=== PATIENT | male | born 1975 | race African-American/Black ===

== ENCOUNTER 2016-03-10 10:59 | Inpatient (IN) ==
[2016-03-10] MEDS ORDERED: ONDANSETRON 4 MG/2 ML VIAL IV STA (11:25)
[2016-03-10] MEDS ORDERED: PANTOPRAZOLE 40 MG VIAL IV STA (11:25)
[2016-03-10 11:49] LABS: Basophils % 0.1 % (0.0-0.8); Hematocrit 40.1 VOL% (42.0-52.0); Hemoglobin 13.9 GM/DL (14.0-18.0); Immature Granulocytes % 0.4 %; Immature Granulocytes Absolute 0.06 #; Lymphocytes # 1.1 10*3/uL (1.4-4.0); Lymphocytes % 6.8 % (21.2-54.2); Mean Corpuscular HGB Conc 34.7 GM/DL (32-36); Mean Corpuscular Hemoglobin 27 PG (27-34); Monocytes % 6.4 % (1.7-12.7); Neutrophils # 13.9 10*3/uL (1.4-7.4); Neutrophils % 86.3 % (38.7-73.9); Platelet Count 538 10*3/uL (130-400); Red Blood Count 5.21 10*6/uL (3.8-5.5); Red Cell Distribution Width 14.5 % (9.3-17.3); White Blood Count 16.1 10*3/uL (4.5-13.71)
[2016-03-10 12:01] LABS: INR 1.1; PT Patient Result 11.4 SECS
[2016-03-10 12:23] LABS: Calcium 9.1 MG/DL (8.5-10.1); Magnesium 1.8 MG/DL (1.8-2.4); Potassium 4.2 MMOL/L (3.5-5.1)
[2016-03-10 12:24] LABS: Troponin I Only 0.204 NG/ML (0.00-0.045)
--- NOTE | 2016-03-10 12:39 | XRay Report ---
XR abdomen 2V Indication: Hematemesis. Chest pain. Abdomen 2 views: No small bowel dilatation shown with a couple of scattered air-fluid levels present, thought to be within normal limits. Normal amount of stool and gas is present in the colon. No free air. Cholecystectomy clips noted. Impression: Unremarkable bowel gas pattern. PROCEDURE INTERPRETED AT [facility] DEPARTMENT OF RADIOLOGY Final Report Signed by: Alex Lorenzana M.D.
--- NOTE | 2016-03-10 12:45 | XRay Report ---
Exam: XR chest 2V Indication: Hematemesis, chest pain Comparison study: 09/27/15 Findings: The heart, mediastinum and bony structures are stable from prior. There is no focal consolidation, pneumothorax or pleural effusion identified. Impression: No acute cardiopulmonary process. PROCEDURE INTERPRETED AT [facility] DEPARTMENT OF RADIOLOGY Final Report Signed by: Ambrosio Noble
--- NOTE | 2016-03-10 12:47 | Emergency Department Note ---
IKrzysztof Kasabria, am scribing for, and in the presence of, Ko Ramires M.D. 11:30. IKeyla Howard T, M.D., personally performed the services described in this documentation, ascribed by Abbe Blankenship in my presence, and it is both accurate and complete 137 . Arrival - Arrival Chief Complaint: Nausea/Vomiting/Diarrhea Stated Complaint: N/V-coffee ground emesis ED Nursing Triage Note: Brought in by EMS c/o N/V coffee ground emesis and midsternal chest pain-onset yesterday. Patient initially called STEMI by EMS for elevation in V1 and V2, Dr. Perdomo and Sonia Jones, CASH ROOM CLERK in ER upon patient's arrival--12 lead obtained and determined to not be a STEMI. +SOB, +diaphoresis. Mode of Arrival: Stretcher Limitations: No Limitations Source: Patient Time Seen by Provider: 03/10/16 11:18 - History of Present Illness HPI Narrative: This is a 41 y/o black male presenting to the ED with c/o hematemesis with the distinct coffee ground color, midsternal chest pain, and diarrhea that onset yesterday. He states he had to leave work earlier due to nausea. He had several bouts of diarrhea accompanying the vomiting. Pt states this has happened to him before 3-4 months ago. He takes two medications for his HTN. He is also a diabetic, gastroparesis, and GERD. Consistency: constant Severity: moderate Allergies/Adverse Reactions: Allergies Allergy/AdvReac Type Severity Reaction Status Date / Time iodine Allergy Swelling Verified 08/08/15 11:33 of Lip/Tongue/Throat shrimp Allergy ITCHING Verified 08/07/15 14:47 Home Medications: Home Medications Medication Instructions Recorded Confirmed Type metFORMIN [Glucophage] 500 mg PO BID W/MEALS 05/21/15 10/14/15 History Nebivolol HCl [Bystolic] 20 mg PO DAILY 09/27/15 10/14/15 History Promethazine Supp [Phenergan Supp] 25 mg RECTAL Q6H PRN #12 supp 10/14/15 Rx hydroCHLOROthiazide 25 mg PO DAILY 10/14/15 10/14/15 History [Hydrochlorothiazide] Review of System - Review of System 12 point system: reviewed and no additional remarkable complaints except as stated - Review of System Constitutional: Absent: chills, fever, weakness Eyes: Absent: vision change Head/Ears/Nose/Throat: Absent: nasal drainage Respiratory: Absent: cough, wheezing Cardiovascular: Present: chest pain (midsternal ). Absent: dyspnea on exertion , syncope Gastrointestinal: Present: nausea, vomiting, diarrhea, hematemesis (coffee ground ). Absent: abdominal pain Genitourinary male: Absent: dysuria Musculoskeletal: Absent: arm pain, back pain, leg pain, neck pain Skin: Absent: rash Neurological: Absent: headache, weakness, numbness, confusion, abnormal gait, vertigo Psychiatric: Absent: anxiety Endocrine: Absent: fatigue Hematological/Lymphatic: Absent: easy bleeding Allergic/Immunologic: Absent: facial swelling Medical,Surgical,& Family Hx - Medical History Cardio: History of: Hypertension HEENT: History of: Eye Problem (bleeding) Endocrine: History of: Diabetes Mellitus (NIDDM) Respiratory: History of: Asthma Gastrointestinal: History of: GERD, GI Problems (gastroparesis) - Surgical History Thoracic Surgeries: Patient denies;: Organ Transplant Abdominal Surgeries: Surgical HX of: Cholecystectomy, EGD Orthopedic Surgeries: Surgical HX of;: Orthopedic Surgery (FOR L LEG FX; right wrist) - Family History Family History: Reports;: Family Diabetes, Family Hypertension - Social History Smoking Status: Current every day smoker Frequency of Alcohol Use: None Type of Drug Use: None Exam Vital Signs: Vital Signs Temperature 98.3 F 03/10/16 11:00 Pulse Rate 91 H 03/10/16 11:00 Respiratory Rate 20 03/10/16 11:00 Blood Pressure 188/110 03/10/16 11:00 O2 Sat by Pulse Oximetry 100 03/10/16 11:00 - General General appearance: alert, in no apparent distress - Head Head exam: Present: atraumatic, normocephalic, normal inspection - Eye Eye exam: Present: normal appearance, PERRL, EOMI - ENT ENT exam: Present: normal exam, normal oropharynx, mucous membranes moist, TM's normal bilaterally, normal external ear exam - Neck Neck exam: Present: normal inspection, full ROM, trachea midline. Absent: tenderness - Chest Chest inspection: Present: normal inspection, symmetric chest wall rise. Absent : tenderness - Respiratory Respiratory exam: Present: normal lung sounds bilaterally - Cardiovascular Cardiovascular exam: Present: regular rate, normal rhythm, normal heart sounds - Abdominal Exam Abdominal exam: Present: soft, normal bowel sounds. Absent: distention, tenderness, guarding - Extremities Exam Extremities exam: Present: normal inspection, full ROM, normal capillary refill. Absent: tenderness, pedal edema, calf tenderness - Back Exam Back exam: Present: normal inspection, full ROM. Absent: tenderness - Neurological Exam Neurological exam: Present: alert, oriented X3, CN II-XII intact, normal gait, reflexes normal - Psychiatric Psychiatric exam: Present: normal affect, normal mood - Skin Skin exam: Present: warm, dry, intact, normal color Course Course Narrative: Medical decision making: At this point patient appears stable but with history of recurrent upper GI bleeding will recommend evaluation by hospitalist for probable admission to obs and possible recurrent GI consult. Results - Labs CBC & BMP: 03/10/16 11:36 03/10/16 11:36 Lab Results: I have reviewed the patients labs - EKG EKG results: interpreted by ERMD, sinus rhythm, normal axis, normal QRS, no acute changes - Diagnostic Findings Procedure: Abdominal x-ray: report reviewed by me (no acute ), Chest x-ray: report reviewed by me (no acute process) Disposition Clinical Impression: Nausea and vomiting, Coffee ground emesis Case discussed with: patient Disposition: Disch/Xfer-Ipshort Term Hos Condition: Stable Time of Disposition: 12:47
[2016-03-10] MEDS ORDERED: SODIUM CHLORIDE 0.9% 1,000 ML IV ONE (13:22)
[2016-03-10] MEDS ORDERED: hydrALAZINE 20 MG/1 ML VIAL IV STA (13:23)
[2016-03-10] MEDS ORDERED: ONDANSETRON 4 MG/2 ML VIAL ONE (13:52)
[2016-03-10] MEDS ORDERED: PANTOPRAZOLE 40 MG VIAL IV ONE (13:52)
--- NOTE | 2016-03-10 13:56 | Hospitalist History & Physical ---
<Leslie Andrea N - Last Filed: 03/10/16 14:34> History of Present Illness History of present illness: Mr. Leonardo is a 41 year old male with PMH of DM, HTN, and gastroperesis. PSH of right knee scope, left leg repair as a child, and cholycystectomy. He denies recent chest pain, shortness of breath, headache, fever, chills, cough , diarrhea, dysuria, or edema. He smokes about a pack of cigarettes a day, drinks occasionally, and smokes marijuanna once or twice a week. He states he began having n/v and abdominal pain that started last night while at work. he has been fighting his diabetic gastroperesis for about two years now. He is seeing Dr. Danielle. He states he takes Glyburide for his DM. He does mention problems keeping his BP under control. Home Medications Medication Instructions Recorded Confirmed Type Nebivolol HCl [Bystolic] 20 mg PO DAILY 09/27/15 03/10/16 History Losartan/Hydrochlorothiazide 1 each PO DAILY 03/10/16 03/10/16 History [Losartan-Hctz 100-25 mg Tab] glyBURIDE/METFORMIN 5-500 1 tablet PO BID W/MEALS 03/10/16 03/10/16 History [Glucovance 5-500] Allergies Allergy/AdvReac Type Severity Reaction Status Date / Time iodine Allergy Swelling Verified 08/08/15 11:33 of Lip/Tongue/Throat shrimp Allergy ITCHING Verified 08/07/15 14:47 Results - Labs CBC & BMP: 03/10/16 11:36 03/10/16 11:36 <Rosemary López R - Last Filed: 03/10/16 16:46> Assessment and Plan (1) Nausea and vomiting Status: Acute Assessment and plan: IV reglan and IV zofran, cont aggressive hydration, epigastric tenderness concerning, IV protonix Current Visit: Yes (2) Hematemesis Status: Acute Assessment and plan: IV protonix Current Visit: No (3) Diabetic gastroparesis Status: Acute Assessment and plan: IV reglan Current Visit: No (4) Diabetes mellitus Status: Acute Assessment and plan: serum ketones positive, 5 units of IV insulin and 1/2 amp D50, ISC, no metformin , lactic acid level normal Current Visit: No (5) Essential hypertension Status: Acute Assessment and plan: dilt drip, will start him on coreg when able to swallow Current Visit: No History of Present Illness Chief complaint: Hemoptysis History of present illness: Mr. Leonardo is a 41 year old male with history of noninsulin dependent diabetes and gastroparesis presents with intractable nausea and vomiting. He reports coffee ground color and severe epigastric pain. He if from [place] but has been working here for 3-4 months. No blood in stools or black tary stools. He has been dizzy and lightheaded and has htn which is not well controlled. He smelled like serum ketones when I walked in the room. His blood pressure was elevated to 170/98. He had received no fluids, or IV blood pressure medications. I asked for stat serum ketones. I am concerned about a ely- becerra tear. Also concerned about him being on metformin with renal failure. Medical,Surgical,& Family Hx - Medical History Cardio: History of: Hypertension HEENT: History of: Eye Problem (bleeding) Endocrine: History of: Diabetes Mellitus (NIDDM) Respiratory: History of: Asthma Gastrointestinal: History of: GERD, GI Problems (gastroparesis) - Surgical History Thoracic Surgeries: Patient denies;: Organ Transplant Abdominal Surgeries: Surgical HX of: Cholecystectomy, EGD Orthopedic Surgeries: Surgical HX of;: Orthopedic Surgery (FOR L LEG FX; right wrist) - Family History Family History: Reports;: Family Diabetes, Family Hypertension - Social History Smoking Status: Current every day smoker Frequency of Alcohol Use: None Type of Drug Use: None Marital Status: Lives With:: Spouse Functional capacity: independent ambulation - Constitutional Constitutional: Present: excessive sweating, fatigue. Absent: fever(s) - EENT Eyes: Absent: blurry vision, diplopia Ears: Absent: decreased hearing, ear discharge Nose, mouth and throat: Absent: headache(s), sore throat - Cardiovascular Cardiovascular: Absent: chest pain at rest, dyspnea - Respiratory Respiratory: Absent: dyspnea, hemoptysis, dyspnea on exertion - Gastrointestinal Gastrointestinal: Present: abdominal pain, coffee ground emesis, diarrhea, hematemesis, nausea, vomiting. Absent: constipation - Genitourinary Genitourinary: Absent: difficulty urinating, dysuria - Neurological Neurological: Absent: confusion, headache(s) - Psychiatric Psychiatric: Absent: anxiety, depression - Endocrine Endocrine: Present: fatigue, polydipsia, polyuria. Absent: cold intolerance, heat intolerance - Hematologic/Lymphatic Hematologic/Lymphatic: Absent: easy bleeding, easy bruising Exam - Constitutional General appearance: normal weight, mild distress - Head Head exam: Present: normal inspection, normocephalic - Eye Eye exam: Present: EOMI. Absent: scleral icterus Pupils: Present: CATHERINE, normal accommodation - ENT ENT exam: Present: normal exam, normal external ear exam - Neck Neck exam: Absent: lymphadenopathy, thyromegaly - Respiratory Respiratory exam: Present: clear to auscultation bilaterally. Absent: rhonchi, wheezes - Cardiovascular Cardiovascular exam: Present: regular rate and rhythm, tachycardia - GI/Abdominal GI/Abdominal exam: Present: normal bowel sounds, tenderness, soft - Extremities Exam Extremities exam: Present: normal inspection, normal capillary refill - Neurological Exam Neurological exam: Present: alert, oriented X3, CN II-XII intact, reflexes normal. Absent: motor sensory deficit - Psychiatric Psychiatric exam: Present: normal affect, normal mood - Skin Skin exam: Present: normal color, warm Results - Labs CBC & BMP: 03/10/16 11:36 03/10/16 11:36 Lab Results: I have reviewed the past 24 hour labs - Diagnostic Findings Procedure: Abdominal x-ray: report reviewed by me (nothing acute ), Chest x-ray : report reviewed by me (nothing acute )
[2016-03-10] MEDS ORDERED: ALUM/MAG/SIMETH/LIDO VISC 1:1 30 ML BOTTLE PO STA (14:57)
[2016-03-10] MEDS ORDERED: PANTOPRAZOLE 40 MG VIAL IV SCH (14:57)
[2016-03-10] MEDS ORDERED: SODIUM CHLORIDE 0.9% 1,000 ML IV SCH (14:57)
[2016-03-10] MEDS: HYDROmorphone 2 MG/1 ML VIAL IV PRN ×2 (15:13→22:40)
[2016-03-10] MEDS: DILTIAZEM INJ 100 MG in SODIUM CHLORIDE 0.9% 100 ML IV SCH ×2 (15:18→23:01)
--- NOTE | 2016-03-10 15:27 | XRay Report ---
XR abdomen 1V Indication: Epigastric abdominal pain. Abdomen 2 views: Comparison 1129 hrs.. Right upper quadrant surgical clips again shown. Bowel gas pattern remains unremarkable with no small bowel dilatation. Normal amount of stool and gas is shown the colon. Impression: Negative abdomen. PROCEDURE INTERPRETED AT [facility] DEPARTMENT OF RADIOLOGY Final Report Signed by: Alex Lorenzana M.D.
[2016-03-10] MEDS ORDERED: INSULIN REGULAR 100 UNIT/ML IV ONE (16:33)
[2016-03-10] MEDS ORDERED: PROMETHAZINE 25 MG/1 ML VIAL IM PRN (16:37)
[2016-03-10] MEDS ORDERED: DEXTROSE 50% 25 GM/50 ML VIAL IV ONE (16:39)
[2016-03-10] MEDS ORDERED: DEXTROSE 50% 25 GM/50 ML VIAL IV PRN (16:44)
[2016-03-10] MEDS ORDERED: GLUCAGON 1 MG VIAL IM PRN (16:44)
--- NOTE | 2016-03-10 18:00 | Gastrointestinal Progress Note ---
Gastroenterology - PN: Subj Interval history: 40-year-old black male with a history of previous erosive esophagitis with multiple episodes of nausea and vomiting since May 2015, previously diagnosed as having LA class C erosive esophagitis, he is actually been doing fairly well under the care of Dr. Danielle keeping his blood sugars under better control overall and has not had an episode since August 2015 but ate some tainted [place] food yesterday and had some nausea and vomiting as a result and after numerous episodes of vomiting developed some blood in the vomitus consistent with Della -Brooks tear. He is feeling much better now that he is on some Reglan and with some acid blocking medication. He is on clear liquids tonight which will probably advance tomorrow. 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 He has been taking his Protonix on a routine basis at least once a day. He does not take the Reglan typically because it was making him feel a bit jittery but is not having a problem now with the IV solution. Exam (Progress Note) - Constitutional Vitals: Period Temp Pulse Resp BP Sys/Rossi Pulse Ox Last 24 Hr 98.7 F 58-127 12-33 121-209/80-107 95-100 Results - Labs CBC & BMP: 03/10/16 11:36 03/10/16 11:36 Specialty Discharge - Follow Up or Referrals - Discharge Medications No Action Nebivolol HCl [Bystolic] 20 mg PO DAILY Losartan/Hydrochlorothiazide [Losartan-Hctz 100-25 mg Tab] 1 each PO DAILY glyBURIDE/METFORMIN 5-500 [Glucovance 5-500] 1 tablet PO BID W/MEALS
--- NOTE | 2016-03-10 18:02 | Gastrointestinal Consult Note ---
Assessment and Plan (1) Della-Brooks tear Status: Acute Assessment and plan: Strongly suspect this patient had a Della-Brooks tear as the cause of his current hematemesis. His pain is gone now and his nausea and vomiting is improved on clear liquid diet with Protonix IV and Reglan IV. This may been secondary to the tainted [place] food that he feels may have initiated the sequence of events resulting in the vomiting. We will observe him for another 24 hours and likely advance his diet and see how he does. We can certainly give him some more Reglan elixir but I would like him to boost up his Protonix to 40 mg twice a day at least for the next week or 2. We'll observe his hematocrit and his white count over the next 24 hours as well-- I suspect this was not a clinically significant bleed. He really doesn't need to be in the ICU from a GI standpoint. Current Visit: Yes (2) Gastroparesis due to secondary diabetes Status: Acute Assessment and plan: Patient does get somewhat jittery with his Reglan and take a long-term basis. Of course this may just be an excuse not to take it is a patient has a strong history of noncompliance. He seems to be doing adequately with the IV intake at this time, we'll continue to watch for evidence of tardive dyskinesia. We can certainly give him some elixir upon discharge but I doubt that he will use it. Current Visit: No (3) Nausea and vomiting Status: Acute Assessment and plan: Improved with the above conservative measures. Likely will advance diet to diabetic tomorrow as tolerated. Nothing new to add to your outstanding care and current regimen. Current Visit: No (4) History of esophagitis Status: Acute Assessment and plan: I don't believe this was an episode of recurrence of the patient's esophagitis simply nausea and vomiting associated with them Della-Brooks tear. Will observe hematocrit and patient improvement with time. Current Visit: Yes History of Present Illness History of present illness: Mr. Leonardo is a 41 year old male with a history of previous erosive esophagitis with multiple episodes of nausea and vomiting since May 2015, previously diagnosed as having LA class C erosive esophagitis, he is actually been doing fairly well under the care of Dr. Danielle keeping his blood sugars under better control overall and has not had an episode since August 2015 but ate some tainted [place] food yesterday and had some nausea and vomiting as a result and after numerous episodes of vomiting developed some blood in the vomitus consistent with Della-Brooks tear. He is feeling much better now that he is on some Reglan and with some acid blocking medication. He is on clear liquids tonight which will probably advance tomorrow. 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 He has been taking his Protonix on a routine basis at least once a day. He does not take the Reglan typically because it was making him feel a bit jittery but is not having a problem now with the IV Reglan formulation. Home Medications Medication Instructions Recorded Confirmed Type Nebivolol HCl [Bystolic] 20 mg PO DAILY 09/27/15 03/10/16 History Losartan/Hydrochlorothiazide 1 each PO DAILY 03/10/16 03/10/16 History [Losartan-Hctz 100-25 mg Tab] glyBURIDE/METFORMIN 5-500 1 tablet PO BID W/MEALS 03/10/16 03/10/16 History [Glucovance 5-500] Allergies Allergy/AdvReac Type Severity Reaction Status Date / Time iodine Allergy Swelling Verified 08/08/15 11:33 of Lip/Tongue/Throat shrimp Allergy ITCHING Verified 08/07/15 14:47 Medical,Surgical,& Family Hx - Medical History Cardio: History of: Hypertension HEENT: History of: Eye Problem (bleeding) Endocrine: History of: Diabetes Mellitus (NIDDM) Respiratory: History of: Asthma Gastrointestinal: History of: GERD, GI Problems (gastroparesis) - Surgical History Thoracic Surgeries: Patient denies;: Organ Transplant Abdominal Surgeries: Surgical HX of: Cholecystectomy, EGD Orthopedic Surgeries: Surgical HX of;: Orthopedic Surgery (FOR L LEG FX; right wrist) - Family History Family History: Reports;: Family Diabetes, Family Hypertension - Social History Smoking Status: Current every day smoker Frequency of Alcohol Use: None Type of Drug Use: None Review of systems: Constitutional: Denies fever, chills, but positive for severe nausea, and vomiting Eyes: Denies dry eyes, and scleral icterus HENT: Denies headaches Cardiovascular: Denies acute chest pain and claudication Respiratory: Denies shortness of breath, wheezing, and difficulty breathing, denies cough Gastrointestinal: As noted in the HPI Genitourinary: Denies dysuria and hematuria Neurologic: Denies vision loss, and loss of sensation Musculoskeletal: Denies joint swelling, joint stiffness, and muscular weakness Psychiatric: Denies depression and anamika symptoms Heme-Lymph: Denies easy bruising, lymph node enlargement or tenderness, night sweats, excessive bleeding Allergies-immunologic: Denies pruritus and rhinorrhea Exam - Constitutional Vitals: Period Temp Pulse Resp BP Sys/Rossi Pulse Ox Last 24 Hr 98.7 F 58-127 12-33 121-209/80-107 95-100 General appearance: normal weight - Eye Eye exam: Present: EOMI Pupils: Present: CATHERINE - Respiratory Respiratory exam: Present: clear to auscultation bilaterally. Absent: rhonchi, stridor, wheezes - Cardiovascular Cardiovascular exam: Present: regular rate and rhythm - GI/Abdominal GI/Abdominal exam: Present: normal bowel sounds, soft. Absent: distended, guarding, tenderness, rebound - Back Exam Back exam: Present: normal inspection - Neurological Exam Neurological exam: Present: alert, oriented X3, CN II-XII intact. Absent: motor sensory deficit - Psychiatric Psychiatric exam: Present: normal affect, normal mood - Skin Skin exam: Present: warm Results - Labs CBC & BMP: 03/10/16 11:36 03/10/16 11:36 Quality Measures - Stroke Symptom Onset Unknown: No Specialty Discharge - Follow Up or Referrals - Discharge Medications No Action Nebivolol HCl [Bystolic] 20 mg PO DAILY Losartan/Hydrochlorothiazide [Losartan-Hctz 100-25 mg Tab] 1 each PO DAILY glyBURIDE/METFORMIN 5-500 [Glucovance 5-500] 1 tablet PO BID W/MEALS
[2016-03-10] MEDS: METOCLOPRAMIDE 10 MG/2 ML VIAL IV SCH (18:21)
[2016-03-10] MEDS: CARVEDILOL 25 MG TABLET PO SCH ×2 (18:24→21:00)
[2016-03-10] MEDS: SODIUM CHLORIDE 0.45% 1,000 ML IV SCH ×2 (18:27→22:58)
[2016-03-10] MEDS: INSULIN LISPRO 100 UNIT/ML SUBCUT SCH ×2 (20:11→22:42)
[2016-03-10] MEDS ORDERED: ALUM/MAG/SIMETH/LIDO VISC 1:1 30 ML BOTTLE PO ONE (21:00)
[2016-03-10] MEDS: PANTOPRAZOLE 40 MG VIAL IV SCH (21:45)
[2016-03-10] MEDS: ONDANSETRON 4 MG/2 ML VIAL IV PRN (22:41)
[2016-03-11] MEDS: INSULIN LISPRO 100 UNIT/ML SUBCUT SCH ×6 (01:00→21:06)
[2016-03-11] MEDS: METOCLOPRAMIDE 10 MG/2 ML VIAL IV SCH ×4 (04:09→18:37)
[2016-03-11 04:58] LABS: Basophils % 0.2 % (0.0-0.8); Eosinophils # 0.1 10*3/uL (0.0-0.87); Eosinophils % 0.4 % (0.00-10.9); Hematocrit 35.4 VOL% (42.0-52.0); Immature Granulocytes % 0.4 %; Immature Granulocytes Absolute 0.06 #; Lymphocytes # 2.7 10*3/uL (1.4-4.0); Lymphocytes % 15.5 % (21.2-54.2); Mean Corpuscular HGB Conc 33.6 GM/DL (32-36); Mean Corpuscular Hemoglobin 27 PG (27-34); Mean Corpuscular Volume 79.6 FL (87-102); Monocytes # 1.6 10*3/uL (0.11-0.8); Monocytes % 9.1 % (1.7-12.7); Neutrophils # 12.7 10*3/uL (1.4-7.4); Neutrophils % 74.4 % (38.7-73.9); Red Blood Count 4.45 10*6/uL (3.8-5.5); Red Cell Distribution Width 14.8 % (9.3-17.3); White Blood Count 17.1 10*3/uL (4.5-13.71)
[2016-03-11 05:04] LABS: Hemoglobin 11.9 GM/DL (14.0-18.0); Platelet Count 426 10*3/uL (130-400)
[2016-03-11 05:27] LABS: Calcium 7.8 MG/DL (8.5-10.1); Osmolality,Calculated 292.6 MOS/KG (273-304); Potassium 3.7 MMOL/L (3.5-5.1)
[2016-03-11] MEDS: ONDANSETRON 4 MG/2 ML VIAL IV PRN ×2 (05:41→20:48)
[2016-03-11] MEDS: SODIUM CHLORIDE 0.45% 1,000 ML IV SCH ×3 (05:46→19:10)
[2016-03-11] MEDS: CARVEDILOL 25 MG TABLET PO SCH ×2 (08:15→20:50)
[2016-03-11] MEDS: HYDROmorphone 2 MG/1 ML VIAL IV PRN ×2 (08:15→20:48)
[2016-03-11] MEDS: PANTOPRAZOLE 40 MG VIAL IV SCH ×2 (08:15→20:50)
--- NOTE | 2016-03-11 08:55 | EKG Report ---
Stationary ECG Study [facility] ER Test Date: 03/10/2016 10:57:56 AM Pat Name: GERRY MO Department: Room: 124 Gender: M Slip Cover Maker: : 1975 Requested by: Ko Vazquez Order Number: [id number] Reading MD: MELCHOR GARCIA Intervals [place] Rate: 93 P: 78 ND: 158 QRS: 76 QRSD: 72 T: 87 QT: 372 QTc: 423 Interpretive Statements SINUS RHYTHM at 93 BPM POSSIBLE LEFT ATRIAL ENLARGEMENT Electronically Signed On 03-11-16 12:12:52 LATHE SPOTTER by MELCHOR GARCIA [email or web address]
[2016-03-11] MEDS: DILTIAZEM INJ 100 MG in SODIUM CHLORIDE 0.9% 100 ML IV SCH (09:05)
[2016-03-11] MEDS ORDERED: LABETALOL 20 MG/4 ML SYRINGE IV PRN (11:51)
[2016-03-11] MEDS ORDERED: PIPERACILLIN/TAZOBACTAM 3,375 MG in SODIUM CHLORIDE 0.9% 100 ML IV SCH (12:00)
--- NOTE | 2016-03-11 12:08 | Hospitalist Progress Note ---
Assessment and Plan (1) Nausea and vomiting Status: Acute Assessment and plan: Most likely due to gastroenteritis. Started him on IV Levaquin , IV reglan and IV zofran, cont aggressive hydration, IV protonix, US abdomen Current Visit: Yes (2) Hematemesis Status: Acute Assessment and plan: IV protonix, could be ely brooks tear Current Visit: No (3) Diabetic gastroparesis Status: Acute Assessment and plan: IV reglan Current Visit: No (4) Diabetes mellitus Status: Acute Assessment and plan: low dose lantus Current Visit: No (5) Essential hypertension Status: Acute Assessment and plan: stop dilt, coreg, added norvasc Current Visit: No Hospitalist: Subjective Interval history: I have asked the nurses to wean him off until today. He still does not feel well today. Dr. Kam believes he did have a Ely-Brooks tear due to nausea and vomiting. He will not scope him at this time. His elevated white count is due most likely to his gastroenteritis. We will start him on antibiotics with Levaquin and advance his diet as tolerated Exam - Constitutional Vitals: Period Temp Pulse Resp BP Sys/Rossi Pulse Ox Last 24 Hr 97.8 F-98.7 F 58-127 11-33 121-209/60-107 95-100 Exam: Heart Rate-[tachy] Lungs-[CTAB] GI-[+bs soft, tender over epigastric area] Ext-[no edema] smell ketones less prominent neuro alert and oriented times 3 psych depressed mood and affect general mild acute distress. Results - Labs CBC & BMP: 03/11/16 04:31 03/11/16 04:31 Lab Results: I have reviewed the past 24 hour labs Quality Measures - Stroke Symptom Onset Unknown: No Specialty Discharge - Follow Up or Referrals - Discharge Medications No Action Nebivolol HCl [Bystolic] 20 mg PO DAILY Losartan/Hydrochlorothiazide [Losartan-Hctz 100-25 mg Tab] 1 each PO DAILY glyBURIDE/METFORMIN 5-500 [Glucovance 5-500] 1 tablet PO BID W/MEALS
[2016-03-11] MEDS: INSULIN GLARGINE 100 UNIT/ML SUBCUT SCH (13:25)
[2016-03-11] MEDS: amLODIPine 5 MG TABLET PO SCH ×2 (13:25→20:50)
[2016-03-11] MEDS: LEVOFLOXACIN INJ 500 MG in PREMIX 1 EACH IV SCH (13:27)
--- NOTE | 2016-03-11 13:54 | Gastrointestinal Progress Note ---
Assessment and Plan (1) Della-Brooks tear Status: Acute Assessment and plan: Strongly suspect this patient had a Della-Brooks tear as the cause of his current hematemesis. His pain is gone now and his nausea and vomiting is improved on clear liquid diet with Protonix IV and Reglan IV. This may been secondary to the tainted [place] food that he feels may have initiated the sequence of events resulting in the vomiting. We will observe him for another 24 hours and likely advance his diet and see how he does. We can certainly give him some more Reglan elixir but I would like him to boost up his Protonix to 40 mg twice a day at least for the next week or 2. We'll observe his hematocrit and his white count over the next 24 hours as well-- I suspect this was not a clinically significant bleed. He really doesn't need to be in the ICU from a GI standpoint. 03/11/16-- still queasy, white count is actually increased from yesterday today indicating no resolution of the potential infective process. I agree with initiation of Levaquin and observation. Hopefully white count will be done tomorrow the patient will start to feel better. Continue Protonix and Reglan at current doses for the present time. No further vomiting. No bowel movements since admission but he has not eaten much either. Current Visit: Yes (2) Gastroparesis due to secondary diabetes Status: Acute Assessment and plan: Patient does get somewhat jittery with his Reglan and take a long-term basis. Of course this may just be an excuse not to take it is a patient has a strong history of noncompliance. He seems to be doing adequately with the IV intake at this time, we'll continue to watch for evidence of tardive dyskinesia. We can certainly give him some elixir upon discharge but I doubt that he will use it. Current Visit: No (3) Nausea and vomiting Status: Acute Assessment and plan: Improved with the above conservative measures. Likely will advance diet to diabetic tomorrow as tolerated. Nothing new to add to your outstanding care and current regimen. 03/11/16--agree with use of Levaquin at this point white count increasing, continue to observe. Current Visit: No (4) History of esophagitis Status: Acute Assessment and plan: I don't believe this was an episode of recurrence of the patient's esophagitis simply nausea and vomiting associated with them Della-Brooks tear. Will observe hematocrit and patient improvement with time. 03/11/16--patient's hematocrit has dropped 1 unit of blood thus far we'll continue to observe. Hopefully it will be stable hereafter. Current Visit: Yes Gastroenterology - PN: Subj Interval history: Still feeling sick, not eating much-- feels queasy to his stomach despite the use of Reglan. Protonix has just started. Her blood cell count is still quite elevated and actually increased from 16,000-->17,000. There may be a systemic infection of some type present. Exam (Progress Note) - Constitutional Vitals: Period Temp Pulse Resp BP Sys/Rossi Pulse Ox Last 24 Hr 97.8 F-98.7 F 58-127 11-33 121-209/60-107 95-100 General appearance: no acute distress - Head Head exam: Present: normal inspection - Eye Eye exam: Present: EOMI Pupils: Present: CATHERINE - Respiratory Respiratory exam: Present: clear to auscultation bilaterally - Cardiovascular Cardiovascular exam: Present: regular rate and rhythm - GI/Abdominal GI/Abdominal exam: Present: normal bowel sounds, tenderness (epigastric), soft. Absent: rebound - Psychiatric Psychiatric exam: Present: normal affect, normal mood - Skin Skin exam: Present: warm Results - Labs CBC & BMP: 03/11/16 04:31 03/11/16 04:31 Specialty Discharge - Follow Up or Referrals - Discharge Medications No Action Nebivolol HCl [Bystolic] 20 mg PO DAILY Losartan/Hydrochlorothiazide [Losartan-Hctz 100-25 mg Tab] 1 each PO DAILY glyBURIDE/METFORMIN 5-500 [Glucovance 5-500] 1 tablet PO BID W/MEALS
[2016-03-11 14:07] LABS: Apearance,Urine Slightly Hazy (Clear); Bilirubin,Urine Negative (Negative); Blood, Urine Moderate mg/dL (Negative); Glucose,Urine (UA) 50 mg/dL (Negative); Ketones,Urine 5 mg/dL (Negative); Mucus,Urine Occasional /LPF (Occasional); Nitrite,Urine Negative (Negative); Protein,Urine >=500 MG/DL; RBC,Urine 32 /HPF (0-4); Squamous Epithelial Cell,Urine Occasional /HPF (0-10); Urine Color Yellow (Yellow); Urine Specific Gravity 1.013 (1.001-1.035); Urine Urobilinogen < 2.0 EU/DL (0.2-1.0); WBC,Urine 3 /HPF (0-6)
--- NOTE | 2016-03-11 14:10 | Ultrasound Report ---
US abdomen Indication: Nausea and vomiting with abdominal pain. ULTRASOUND ABDOMEN, COMPLETE Comparison: None Findings: Liver: Unremarkable Gallbladder: Surgically absent Common bile duct: 4 mm Aorta: No aneurysm IVC: Patent Spleen: Unremarkable Pancreas: Unremarkable Right kidney: 12.4 cm length. No mass, cyst, calcification or obstruction Left kidney: 12.6 cm length. No mass, cyst, calcification or obstruction Impression: Negative ultrasound. PROCEDURE INTERPRETED AT [facility] DEPARTMENT OF RADIOLOGY Final Report Signed by: Alex Lorenzana M.D.
[2016-03-12] MEDS: METOCLOPRAMIDE 10 MG/2 ML VIAL IV SCH ×4 (00:47→17:38)
[2016-03-12] MEDS: SODIUM CHLORIDE 0.45% 1,000 ML IV SCH ×2 (01:30→08:21)
[2016-03-12] MEDS: INSULIN LISPRO 100 UNIT/ML SUBCUT SCH ×5 (03:02→17:33)
[2016-03-12 05:15] LABS: Basophils # 0.1 10*3/uL (0.0-0.2); Basophils % 0.4 % (0.0-0.8); Eosinophils # 0.2 10*3/uL (0.0-0.87); Eosinophils % 1.6 % (0.00-10.9); Hematocrit 35.9 VOL% (42.0-52.0); Hemoglobin 12.1 GM/DL (14.0-18.0); Immature Granulocytes % 0.3 %; Immature Granulocytes Absolute 0.04 #; Lymphocytes # 2.9 10*3/uL (1.4-4.0); Lymphocytes % 20.8 % (21.2-54.2); Mean Corpuscular HGB Conc 33.7 GM/DL (32-36); Mean Corpuscular Hemoglobin 27 PG (27-34); Mean Corpuscular Volume 78.9 FL (87-102); Mean Platelet Volume 9.9 FL (9.6-12.0); Monocytes # 1.2 10*3/uL (0.11-0.8); Monocytes % 8.2 % (1.7-12.7); Neutrophils # 9.7 10*3/uL (1.4-7.4); Neutrophils % 68.7 % (38.7-73.9); Platelet Count 417 10*3/uL (130-400); Red Blood Count 4.55 10*6/uL (3.8-5.5); Red Cell Distribution Width 14.3 % (9.3-17.3); White Blood Count 14.1 10*3/uL (4.5-13.71)
[2016-03-12] MEDS: ONDANSETRON 4 MG/2 ML VIAL IV PRN ×2 (05:19→18:27)
[2016-03-12] MEDS: HYDROmorphone 2 MG/1 ML VIAL IV PRN ×2 (05:20→13:14)
[2016-03-12 05:48] LABS: Osmolality,Calculated 280.4 MOS/KG (273-304); Potassium 3.7 MMOL/L (3.5-5.1)
--- NOTE | 2016-03-12 07:40 | Physician Query Form ---
CLICK EDIT DOCUMENT TO SELECT QUERY ANSWER --> OK --> SIGN Comfort Renteria RN, CCDS Certified Clinical Changer Fixer W) [phone] (f) [phone] [email or web address] PROVIDERS: Make your selection(s) from the choices in EACH section by typing an "x" and enter comments in the comment section. Please use your independent medical judgment in providing your response. This request does not imply that any particular answer is desired or expected. CLINICAL INDICATORS: (Providers should not edit this section) The medical record indicates that the patient was admitted with NV, history of gastroparesis, Creatinine of 2.30 on the 4th that has decreased to 1.80 on the 6th, GFR of 47 on the 4th that has increased to 61 on the 6th and "Also concerned about him being on metformin with renal failure". patient has been given 2 liters boluses of NS Clarify which of the following most accurately represents the patient's renal status: ( ) Acute kidney injury (non-traumatic) ( ) Acute renal failure (x ) Acute renal failure with underlying Chronic Kidney Disease (CKD) - please provide stage below ( ) Acute renal failure with pathological renal lesion ( ) Acute renal failure with necrosis ( ) tubular ( ) medullary ( ) cortical ( ) CKD - please provide stage below ( ) End Stage Renal Disease ( ) Acute interstitial nephritis ( ) Hepatorenal syndrome ( ) Other, please specify: ( ) Clinically unable to determine Chronic Kidney Disease Stages Source: National Kidney Disease Foundation ( ) Stage I (eGFR > or = 90) ( ) Stage II (eGFR 60 - 89) ( ) Stage III (eGFR 30 - 59) ( ) Stage IV (eGFR 15 - 29) ( ) Stage V (eGFR < 15 or dialysis) COMMENTS: Use of terms such as suspected, likely, or probable (associated with a specific diagnosis that is being evaluated, monitored, or treated as if it exists) are acceptable and can be restated in the discharge summary if not ruled out. MTDD
[2016-03-12] MEDS: CARVEDILOL 25 MG TABLET PO SCH (09:09)
[2016-03-12] MEDS: amLODIPine 5 MG TABLET PO SCH (09:09)
[2016-03-12] MEDS: PANTOPRAZOLE 40 MG VIAL IV SCH (09:09)
[2016-03-12] MEDS: INSULIN GLARGINE 100 UNIT/ML SUBCUT SCH (09:10)
--- NOTE | 2016-03-12 09:18 | Hospitalist Progress Note ---
Assessment and Plan (1) Nausea and vomiting Status: Acute Assessment and plan: resolved advance diet, cont levaquin to treat gastroenteritis Current Visit: Yes (2) Hematemesis Status: Acute Assessment and plan: IV protonix, could be ely becerra tear Current Visit: No (3) Diabetic gastroparesis Status: Acute Assessment and plan: IV reglan Current Visit: No (4) Diabetes mellitus Status: Acute Assessment and plan: cont low dose lantus Current Visit: No (5) Essential hypertension Status: Acute Assessment and plan: cont coreg and norvasc, HL IVF, start low dose hydralazine, renal dopplers looking for renal artery stenosis Current Visit: No Hospitalist: Subjective Interval history: Patient feeling much better today on a Hep-Lock his fluids and work on controlling his blood pressure better today. His white count is down and I am in a move him to the floor without telemetry. Exam - Constitutional Vitals: Period Temp Pulse Resp BP Sys/Rossi Pulse Ox Last 24 Hr 97.8 F-99.2 F 72-88 12-21 152-191/79-108 96-100 Exam: Heart Rate-[RRR] Lungs-[CTAB] GI-[+bs soft, tender over epigastric area] Ext-[no edema] neuro alert and oriented times 3, motor 5/5 psych depressed mood and affect general mild acute distress. Results - Labs CBC & BMP: 03/12/16 04:52 03/12/16 04:52 Lab Results: I have reviewed the past 24 hour labs Quality Measures - Stroke Symptom Onset Unknown: No Specialty Discharge - Follow Up or Referrals - Discharge Medications No Action Nebivolol HCl [Bystolic] 20 mg PO DAILY Losartan/Hydrochlorothiazide [Losartan-Hctz 100-25 mg Tab] 1 each PO DAILY glyBURIDE/METFORMIN 5-500 [Glucovance 5-500] 1 tablet PO BID W/MEALS
--- NOTE | 2016-03-12 11:21 | Ultrasound Report ---
Referring Physician: Rosemary López Exam: US renal doppler Date: March 12, 2016 Reason: Renal artery stenosis Comparison: Abdominal ultrasound March 11, 2016 Technique: Duplex scan of the kidneys was performed using B-Mode/grayscale imaging and Doppler spectral analysis and color flow. Ultrasound images were captured and stored. Findings: No hydronephrosis or suspicious renal lesion is identified. The velocity at the abdominal aorta is 68 cm/s. The resistive indices at the right kidney range from 0.56-0.65, and the resistive indices at the left kidney range from 0.60-0.65 (within normal limits). The velocity at the main right renal artery is 54 cm/s with a renal artery/aorta velocity ratio of 0.72. The velocity at the main left renal artery is 58 cm/s with a renal artery/aorta velocity ratio of 0.70. Impression: There is no evidence of renal artery stenosis at either kidney. PROCEDURE INTERPRETED AT [facility] DEPARTMENT OF RADIOLOGY Final Report Signed by: Dr. Marisol Olivo
--- NOTE | 2016-03-12 11:30 | Gastrointestinal Progress Note ---
Assessment and Plan (1) Della-Brooks tear Status: Acute Assessment and plan: Strongly suspect this patient had a Della-Brooks tear as the cause of his current hematemesis. His pain is gone now and his nausea and vomiting is improved on clear liquid diet with Protonix IV and Reglan IV. This may been secondary to the tainted [place] food that he feels may have initiated the sequence of events resulting in the vomiting. We will observe him for another 24 hours and likely advance his diet and see how he does. We can certainly give him some more Reglan elixir but I would like him to boost up his Protonix to 40 mg twice a day at least for the next week or 2. We'll observe his hematocrit and his white count over the next 24 hours as well-- I suspect this was not a clinically significant bleed. He really doesn't need to be in the ICU from a GI standpoint. 03/11/16-- still queasy, white count is actually increased from yesterday today indicating no resolution of the potential infective process. I agree with initiation of Levaquin and observation. Hopefully white count will be done tomorrow the patient will start to feel better. Continue Protonix and Reglan at current doses for the present time. No further vomiting. No bowel movements since admission but he has not eaten much either. 03/12/16--the patient is doing much better now on the Reglan IV and Protonix IV-- he is able to tolerate advancing his diet to more solids tomorrow with deathly suggest switching these over to by mouth forms of their medication to include Reglan elixir 10 mg 4 times a day and Protonix 40 mg at least daily if not twice a day. His abdomen seems much better but is still focused on his kidney function, diabetes, and blood pressure. As his hematocrit is stable at 35% will hold off on having my partner see him over the weekend. If you have difficulties, please page Dr. Gallo who will come and see the patient as needed. Current Visit: Yes (2) Gastroparesis due to secondary diabetes Status: Acute Assessment and plan: Patient does get somewhat jittery with his Reglan and take a long-term basis. Of course this may just be an excuse not to take it is a patient has a strong history of noncompliance. He seems to be doing adequately with the IV intake at this time, we'll continue to watch for evidence of tardive dyskinesia. We can certainly give him some elixir upon discharge but I doubt that he will use it. 03/12/16-- The patient is doing significant only better on a combination of Protonix and Reglan, we'll continue this for the present time and think about switching over to by mouth from the IV forms once the patient is able tolerate solid diet. I will return again on 03/15/16 to see this patient if they are still admitted. If he is discharged and antrum would have him seriously consider taking the Reglan elixir, until he is confident that he feels better at home. Current Visit: No (3) Nausea and vomiting Status: Acute Assessment and plan: Improved with the above conservative measures. Likely will advance diet to diabetic tomorrow as tolerated. Nothing new to add to your outstanding care and current regimen. 03/11/16--agree with use of Levaquin at this point white count increasing, continue to observe. 03/12/16--the patient is improving now with white count decreased from 17,000 to 14,000 K. He feels better, Protonix and Reglan appear to be working well for the patient. Again, I will return on 03/15/16 to see the patient again. Current Visit: No (4) History of esophagitis Status: Acute Assessment and plan: I don't believe this was an episode of recurrence of the patient's esophagitis simply nausea and vomiting associated with them Della-Brooks tear. Will observe hematocrit and patient improvement with time. 03/11/16--patient's hematocrit has dropped 1 unit of blood thus far we'll continue to observe. Hopefully it will be stable hereafter. Current Visit: Yes Gastroenterology - PN: Subj Interval history: The patient is most focused on his blood pressure, his abdominal pain is actually improved significantly. He has small twinges from time to time but not like the epigastric tenderness that he was having earlier in his admission. He is tolerating a full liquid diet at this time and no further nausea or vomiting. Exam (Progress Note) - Constitutional Vitals: Period Temp Pulse Resp BP Sys/Rossi Pulse Ox Last 24 Hr 97.8 F-98.8 F 72-88 9-21 152-191/79-108 95-100 General appearance: no acute distress - Head Head exam: Present: normocephalic, atraumatic - Eye Eye exam: Present: EOMI - Respiratory Respiratory exam: Present: clear to auscultation bilaterally. Absent: rhonchi, stridor, wheezes - Cardiovascular Cardiovascular exam: Present: regular rate and rhythm - GI/Abdominal GI/Abdominal exam: Present: normal bowel sounds, soft. Absent: ascites, distended, guarding, tenderness, rebound - Neurological Exam Neurological exam: Present: alert, oriented X3, CN II-XII intact - Psychiatric Psychiatric exam: Present: normal affect, normal mood - Skin Skin exam: Present: warm Results - Labs CBC & BMP: 03/12/16 04:52 03/12/16 04:52 Specialty Discharge - Follow Up or Referrals - Discharge Medications No Action Nebivolol HCl [Bystolic] 20 mg PO DAILY Losartan/Hydrochlorothiazide [Losartan-Hctz 100-25 mg Tab] 1 each PO DAILY glyBURIDE/METFORMIN 5-500 [Glucovance 5-500] 1 tablet PO BID W/MEALS
[2016-03-12] MEDS: hydrALAZINE 25 MG TABLET PO SCH ×2 (13:14→16:36)
[2016-03-12] MEDS ORDERED: LORazepam 0.5 MG TABLET PO PRN (15:41)
[2016-03-12] MEDS ORDERED: hydrALAZINE 20 MG/1 ML VIAL IV PRN (15:42)
[2016-03-12] MEDS: LEVOFLOXACIN INJ 500 MG in PREMIX 1 EACH IV SCH (16:08)
[2016-03-12 17:32] VITALS: BP 170/98
--- NOTE | 2016-03-13 18:48 | Discharge Summary ---
Hospital Course - Hospital Course Hospital Course: Mr. Leonardo is a 41 year old male with history of noninsulin dependent diabetes, gastroparesis and HTN presents with intractable nausea and vomiting. He reports coffee ground color and severe epigastric pain. Consulted Dr Kam and he felt he had a ely becerra tear and esophagitis. He started him on reglan IV and zofran IV. He was placed on levaquin for gastroenteritis and he improved. His ketones are positive but he was not in dka. He was aggressively rehydrated and started him on lantus. I stopped metformin due to renal failure. His blood pressure was very difficult to control. He does not have renal artery stenosis. We started coreg, norvasc and hydralazine. Patient left AMA last night. - Time spent with patient Time with patient DS: Greater than 30 minutes Diagnosis - Discharge Diagnosis (1) Nausea and vomiting Status: Acute (2) Hematemesis Status: Acute (3) Diabetic gastroparesis Status: Acute (4) Diabetes mellitus Status: Acute (5) Essential hypertension Status: Acute Specialty Discharge - Follow Up or Referrals - Discharge Medications No Action Nebivolol HCl [Bystolic] 20 mg PO DAILY Losartan/Hydrochlorothiazide [Losartan-Hctz 100-25 mg Tab] 1 each PO DAILY glyBURIDE/METFORMIN 5-500 [Glucovance 5-500] 1 tablet PO BID W/MEALS Discharge Plan - Discharge Data Disposition: Left Against Medical Advice - Discharge Medications No Action Nebivolol HCl [Bystolic] 20 mg PO DAILY Losartan/Hydrochlorothiazide [Losartan-Hctz 100-25 mg Tab] 1 each PO DAILY glyBURIDE/METFORMIN 5-500 [Glucovance 5-500] 1 tablet PO BID W/MEALS - Follow Up or Referral - Forms/Instructions Exam - Constitutional Vitals: Period Temp Pulse Resp BP Sys/Rossi Pulse Ox Last 24 Hr 16 Discharge Results Procedures and tests throughout hospitalization: Pending Orders 03/11/16 12:23 Blood Culture Stat Labs on day of discharge: Preliminary micro results at discharge 03/11/16 12:23 Blood Culture - Preliminary Blood No growth at 1 day DS: Provider Date of admission: 03/10/16 13:23 Primary care physician: . No PCP Attending physician on admission: Rosemary López MD Consults: 03/10/16 14:57 Consult to Physician [CONS] Routine Comment: vomiting blood, epigastric pain Consulting Provider: Rowdy Kam When should Consulting Provider be notified: Now 03/10/16 15:07 Consult to Pharmacy [CONS] Routine Reason for Pharmacy Consult: Adjust Meds Renal Funct 03/10/16 17:53 Consult to Pastoral Services [CONS] Routine Comment: Pastoral Screen: Request Placement Assistant Visit Pastoral Screen Source of Request: Patient Discharging clinician: Rosemary López MD
--- NOTE | 2016-03-17 07:17 | Physician Query Form ---
CLICK EDIT DOCUMENT TO SELECT QUERY ANSWER --> OK --> SIGN Comfort Renteria RN, CCDS Certified Clinical Manager Strategy & Account W) [phone] (f) [phone] [email or web address] PROVIDERS: Make your selection(s) from the choices in EACH section by typing an "x" and enter comments in the comment section. Please use your independent medical judgment in providing your response. This request does not imply that any particular answer is desired or expected. CLINICAL INDICATORS: (Providers should not edit this section) The medical record indicates that the patient was admitted with NV, history of gastroparesis, gastroenteritis and the patient was placed on Levaquin/ Reglan IV. Based on the above, could you clarify the appropriate diagnosis, if significant , that supports the above abnormalities and additional evaluation, monitoring, and/or treatment rendered: (xx)NV due to DM gastroparesis ( )NV due to gastroparesis ( )NV due to infectious gastroenteritis ( )NV due to infectious gastroenteritis and DM gastroparesis ( )NV due to gastroenteritis from food poisoning ( )NV due to gastroenteritis ( ) Other, please specify: ( ) Clinically unable to determine COMMENTS: Use of terms such as suspected, likely, or probable (associated with a specific diagnosis that is being evaluated, monitored, or treated as if it exists) are acceptable and can be restated in the discharge summary if not ruled out. MTDD
== END 2016-03-12 20:27 | disposition left against medical advice (07) | DRG 73 ==
LOC: EDBD → EDUNIT# → N.ED 10:59 → N.EDINP 13:23 → N.CC 13:48 → N.5E 03-12 17:47
PROVIDERS: ADMIT Internal Medicine; ATTEND Internal Medicine

== ENCOUNTER 2016-07-28 23:35 | Inpatient (IN) ==
[2016-07-29] MEDS ORDERED: hydrALAZINE 20 MG/1 ML VIAL IV STA ×2 (00:11→01:28)
[2016-07-29] MEDS ORDERED: HYDROmorphone 2 MG/1 ML VIAL IV STA (00:11)
[2016-07-29] MEDS ORDERED: ALUM/MAG/SIMETH/LIDO VISC 1:1 30 ML BOTTLE PO STA (00:11)
[2016-07-29] MEDS ORDERED: ONDANSETRON 4 MG/2 ML VIAL IV STA (00:11)
[2016-07-29] MEDS ORDERED: SODIUM CHLORIDE 0.9% 500 ML IV STA (00:11)
[2016-07-29] MEDS ORDERED: PANTOPRAZOLE 40 MG VIAL IV STA (00:11)
[2016-07-29] MEDS ORDERED: hydrALAZINE 20 MG/1 ML VIAL ONE (00:23)
[2016-07-29] MEDS ORDERED: HYDROmorphone 2 MG/1 ML VIAL ONE (00:23)
[2016-07-29] MEDS ORDERED: PANTOPRAZOLE 40 MG VIAL IV ONE (00:23)
[2016-07-29] MEDS ORDERED: ONDANSETRON 4 MG/2 ML VIAL ONE ×2 (00:23→00:31)
[2016-07-29] MEDS ORDERED: ALUM/MAG/SIMETH/LIDO VISC 1:1 30 ML BOTTLE PO ONE (00:24)
--- NOTE | 2016-07-29 00:29 | Emergency Department Note ---
Fernando Diaz Brittany, am scribing for, and in the presence of, Augustus Concepcion MD 00:21. Jamey Diaz Charles R, MD, personally performed the services described in this documentation, ascribed by Rebekah King in my presence, and it is both accurate and complete . Arrival - Arrival Chief Complaint: Nausea/Vomiting/Diarrhea Stated Complaint: vomitting up blood ED Nursing Triage Note: nausea, vomitting, lightheaded, dizziness> Pt sitting in wheelchair in triage begins to vomit, while pt was leaning forward he had syncopal episode and falls forward out of wheelchair. Ann RN caught pt head before hitting floor. Pt rolled over by staff, pt awake alert airway patent. Pt assisted up back into chair. Mode of Arrival: Wheelchair Limitations: No Limitations Source: Patient, Old Records Reviewed, RN Notes Reviewed Time Seen by Provider: 07/28/16 23:59 - History of Present Illness HPI Narrative: Mr. Leonardo is a 41 y/o black male presenting to the ED with c/o intractable nausea and vomiting with an onset of 4 days. Patient reports that he has a history significant for Gastroparesis and has been seen on multiple occasions in the past for similar episodes. On reviewing old records it is noted that patient has had 4 visits within the past 5 months for similar episodes. He states that he vomits frequently to the point of vasovagal syncope and notes that since onset of symptoms four days ago he has done this twice. He reports associated symptoms of abdominal pain, but upon showing us location it appears this is more of a chest pain. He's also been having some dehydration. Patient denies having any headache, fever or vertigo. Patient has a history of Cholecystectomy performed 2 years ago. Patient states that he does not think his current symptoms are Gastroparesis and believes that this might be a result of something he ate that may have soured his stomach. He has been seen by Dr. Chilel in the past for this. He has no history of Bariatric Surgery. On monitor patient is hypertensive with a blood pressure reading of 204/118 mmHg, he reports a history of Severe HTN and usually takes his blood pressure medications but has not taken today. He has no other complaint/pain. Onset (ago): day(s) (4) Consistency: constant Allergies/Adverse Reactions: Allergies Allergy/AdvReac Type Severity Reaction Status Date / Time iodine Allergy Swelling Verified 07/28/16 23:48 of Lip/Tongue/Throat shrimp Allergy ITCHING Verified 07/28/16 23:48 Home Medications: Home Medications Medication Instructions Recorded Confirmed Type Pantoprazole Tab [Protonix Tab] 40 mg PO DAILY 03/22/16 05/02/16 History Carvedilol [Coreg] 6.25 mg PO BID #60 tablet 05/04/16 Rx Famotidine Tab [Pepcid Tab] 20 mg PO BID #60 tablet 05/04/16 Rx Lisinopril 20 mg PO BID #60 tablet 05/04/16 Rx Sucralfate Liquid [Carafate Liquid] 1 gm PO Q6H #500 mls 05/04/16 Rx amLODIPine [Norvasc] 10 mg PO DAILY #30 tablet 05/04/16 Rx Review of System - Review of System 12 point system: reviewed and no additional remarkable complaints except as stated - Review of System Constitutional: Present: weakness. Absent: chills, diaphoresis, fever Eyes: Absent: vision change Head/Ears/Nose/Throat: Absent: nasal drainage, sore throat Respiratory: Absent: respiratory distress Cardiovascular: Present: as per HPI, chest pain Gastrointestinal: Present: as per HPI, abdominal pain, nausea, vomiting. Absent : diarrhea, constipation Genitourinary male: Absent: urgency, dysuria, frequency Musculoskeletal: Absent: arm pain, back pain, leg pain, neck pain Skin: Absent: rash Neurological: Absent: headache Psychiatric: Absent: anxiety, depression Hematological/Lymphatic: Absent: easy bleeding, easy bruising Medical,Surgical,& Family Hx - Medical History Cardio: History of: Hypertension No history of: Aneurysm, Cardiac Dysrhythmia, Cerebrovascular Disease, Congenital Heart Disease, CHF, CAD, [place], Pacemaker, PVD, Valvular Heart Disease, Cardiovascular Problems Neurology: No history of: Brain Aneurysm, Cerebral Hemorrhage, Cerebrovascular Accident , Cerebral Palsy, Dementia, Migraine, Multiple Sclerosis, Parkinson's Disease, Peripheral Neuropathy, Seizures, TIA, Vertigo, Neurologocal Cancer HEENT: History of: Eye Problem (bleeding) Endocrine: History of: Diabetes Mellitus (NIDDM) (since 2000) No history of: Dyslipidemia Respiratory: History of: Asthma No history of: Bronchitis, COPD, Intubation, Obstructive Sleep Apnea, Pulmonary Embolism, Pulmonary Hypertension, Pneumonia, Lung Cancer Gastrointestinal: History of: GERD, Gastrointestinal Bleed, GI Problems ( gastroparesis) No history of: Bowel Obstruction, Clostridium Difficile, Crohn's Disease, Diverticulitis/ Diverticulosis, Esophageal Varices, Hemorrhoids, Hematochezia, Hepatitis, Liver Problems, Pancreatitis, Polyps, Ulcerative Colitis, Gastrointestinal Cancer - Surgical History Cardiac Surgeries: Patient Denies: Femoral-Popliteal Bypass Graft, Cardiac Catheterization, Cardiac Surgery, Carotid Endarterectomy, Internal Defibrillator, Vascular Access Devices Thoracic Surgeries: Patient denies;: Organ Transplant, Lobectomy Neurologic Surgeries: Patient denies: Brain Aneurysm, Cerebral Hemorrhage, Neurologic Surgery HEENT Surgeries: Surgical HX of: Tonsilectomy & Adenoidectomy Patient denies: Carotid Endarterectomy Abdominal Surgeries: Surgical HX of: Cholecystectomy, Colonoscopy, EGD Patient denies: Abdominal Surgery, Appendectomy, Gastric Bypass Surgery, Hernia Repair, Splenectomy Reproductive Surgeries: Patient denies;: Genitourinary Surgery Orthopedic Surgeries: Surgical HX of;: Orthopedic Surgery (FOR L LEG FX; right wrist) - Family History Family History: Reports;: Family Diabetes, Family Hypertension - Social History Smoking Status: Current every day smoker Frequency of Alcohol Use: None Type of Drug Use: None Exam Vital Signs: Vital Signs Temperature 98.6 F 07/28/16 23:37 Pulse Rate 136 H 07/28/16 23:37 Respiratory Rate 16 07/28/16 23:37 Blood Pressure 168/124 07/28/16 23:37 O2 Sat by Pulse Oximetry 100 07/28/16 23:37 - General General appearance: alert, in no apparent distress - Head Head exam: Present: atraumatic, normocephalic, normal inspection - Eye Eye exam: Present: PERRL, EOMI. Absent: normal appearance (bloodshot eyes) - ENT ENT exam: Present: mucous membranes dry. Absent: mucous membranes moist - Neck Neck exam: Present: normal inspection, full ROM, trachea midline - Chest Chest inspection: Present: normal inspection, symmetric chest wall rise. Absent : tenderness - Respiratory Respiratory exam: Present: normal lung sounds bilaterally. Absent: rales, rhonchi, wheezes - Cardiovascular Cardiovascular exam: Present: normal rhythm, tachycardia, normal heart sounds. Absent: regular rate, murmur, rubs, gallop - Abdominal Exam Abdominal exam: Present: soft, normal bowel sounds. Absent: distention, tenderness - Extremities Exam Extremities exam: Present: normal inspection - Back Exam Back exam: Present: normal inspection - Neurological Exam Neurological exam: Present: alert, oriented X3, CN II-XII intact. Absent: motor sensory deficit - Psychiatric Psychiatric exam: Present: normal affect, normal mood - Skin Skin exam: Present: warm, dry, intact, normal color Course - Reevaluation(s) Reevaluation #1: Patient blood pressure still elevated chronic hypertension. Patient still having symptoms of nausea vomiting gastroparesis will place patient hospital from nephrology consult GI consult control his blood pressure Time: : - Consultations Consultation #1: Hospitalist will admit patient Time: : Results - Labs CBC & BMP: 07/29/16 Unknown 07/29/16 Unknown Lab Results: I have reviewed the patients labs Labs: Laboratory Tests 07/29/16 Unknown WBC 12.2 H RBC 5.60 H Hgb 14.6 Hct 42.8 MCV 76.4 L MCH 26 L Plt Count 721 H Neut % (Auto) 85.8 H Lymph % (Auto) 9.1 L Neut # (Auto) 10.5 H Lymph # (Auto) 1.1 L Laboratory Tests 07/29/16 Unknown Sodium 142 Potassium 4.4 Chloride 98 Carbon Dioxide 27 Anion Gap 21.4 H BUN 26 H Creatinine 2.40 H Glucose 242 H Calcium 10.4 H Troponin I 0.073 H Globulin 3.7 H Albumin/Globulin Ratio 1.0 L Critical Care Time Critical Care Time: Yes Total Critical Care Time: 60 Disposition Clinical Impression: Hypertensive urgency, Gastroparesis due to DM, Chronic renal insufficiency, stage II (mild), Erosive esophagitis, Gastroparesis due to secondary diabetes, Hypertension, Della-Brooks tear, Gastritis, Essential hypertension Case discussed with: patient, patient's family Disposition: Still a Patient Condition: Guarded Time of Disposition: :
[2016-07-29 00:41] LABS: Basophils % 0.2 % (0.0-0.8); Hematocrit 42.8 VOL% (42.0-52.0); Hemoglobin 14.6 GM/DL (14.0-18.0); Immature Granulocytes % 1.1 %; Immature Granulocytes Absolute 0.14 #; Lymphocytes # 1.1 10*3/uL (1.4-4.0); Lymphocytes % 9.1 % (21.2-54.2); Mean Corpuscular HGB Conc 34.1 GM/DL (32-36); Mean Corpuscular Hemoglobin 26 PG (27-34); Mean Corpuscular Volume 76.4 FL (87-102); Mean Platelet Volume 10.5 FL (9.6-12.0); Monocytes # 0.5 10*3/uL (0.11-0.8); Monocytes % 3.8 % (1.7-12.7); Neutrophils # 10.5 10*3/uL (1.4-7.4); Neutrophils % 85.8 % (38.7-73.9); Platelet Count 721 T/CUMM (130-400); Red Cell Distribution Width 14.8 % (9.3-17.3); White Blood Count 12.2 T/CUMM (4-12)
[2016-07-29 00:53] LABS: Albumin 3.8 G/DL (3.4-5.0); Bilirubin,Total 0.8 MG/DL (0.2-1.0); Calcium 10.4 MG/DL (8.5-10.1); Magnesium 1.9 MG/DL (1.8-2.4); Osmolality,Calculated 295.1 MOS/KG (273-304); Potassium 4.4 MMOL/L (3.5-5.1); Total Protein 7.5 G/DL (6.4-8.3)
[2016-07-29 01:03] LABS: Troponin I Only 0.073 NG/ML (0.00-0.045)
[2016-07-29] MEDS ORDERED: PROMETHAZINE 25 MG/1 ML VIAL IM STA (01:32)
[2016-07-29] MEDS ORDERED: PROMETHAZINE 25 MG/1 ML VIAL ONE (01:33)
--- NOTE | 2016-07-29 01:42 | Hospitalist History & Physical ---
Assessment and Plan (1) Gastroparesis due to DM Status: Acute Current Visit: Yes (2) Gastroparesis due to secondary diabetes Status: Acute Current Visit: Yes (3) Hypertensive urgency Status: Acute Current Visit: Yes (4) Chronic renal insufficiency, stage II (mild) Status: Chronic Current Visit: Yes (5) Essential hypertension Status: Chronic Assessment and plan: Our plan for this patient will be admission to telemetry. Will have hydralazine as needed for his hypertension. We need to find out what his home medication regimen is. Once she is able to take p.o. we will switch over to that. Also would would like to consult GI and nephrology. 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 Patient needs to have his kidney function evaluated. Treat his nausea and vomiting symptoms reevaluate patient in the morning and adjust plans as appropriate Current Visit: Yes History of Present Illness Chief complaint: Nausea and vomiting History of present illness: Mr. Leonardo is a 41 year old male with past medical history significant for gastroparesis diabetes hypertension who was in his normal state of health approximately 2 days ago. At that time patient started developing his gastroparesis type symptoms involving nausea and vomiting. Patient has not been able to keep any of his medications down therefore his blood pressure has been rising. Patient has significant blood pressure issues and heads had been on multiple medications. According to the patient his current regimen has been working well for him. He stone up significantly enough that the were he feels like he sent some blood during his dry heaves. Home Medications Medication Instructions Recorded Confirmed Type Pantoprazole Tab [Protonix Tab] 40 mg PO DAILY 03/22/16 05/02/16 History Carvedilol [Coreg] 6.25 mg PO BID #60 tablet 05/04/16 Rx Famotidine Tab [Pepcid Tab] 20 mg PO BID #60 tablet 05/04/16 Rx Lisinopril 20 mg PO BID #60 tablet 05/04/16 Rx Sucralfate Liquid [Carafate Liquid] 1 gm PO Q6H #500 mls 05/04/16 Rx amLODIPine [Norvasc] 10 mg PO DAILY #30 tablet 05/04/16 Rx Allergies Allergy/AdvReac Type Severity Reaction Status Date / Time iodine Allergy Swelling Verified 07/28/16 23:48 of Lip/Tongue/Throat shrimp Allergy ITCHING Verified 05/24/17 23:48 Medical,Surgical,& Family Hx - Medical History Cardio: History of: Hypertension No history of: Aneurysm, Cardiac Dysrhythmia, Cerebrovascular Disease, Congenital Heart Disease, CHF, CAD, [place], Pacemaker, PVD, Valvular Heart Disease, Cardiovascular Problems Neurology: No history of: Brain Aneurysm, Cerebral Hemorrhage, Cerebrovascular Accident , Cerebral Palsy, Dementia, Migraine, Multiple Sclerosis, Parkinson's Disease, Peripheral Neuropathy, Seizures, TIA, Vertigo, Neurologocal Cancer HEENT: History of: Eye Problem (bleeding) Endocrine: History of: Diabetes Mellitus (NIDDM) (since 2000) No history of: Dyslipidemia Respiratory: History of: Asthma No history of: Bronchitis, COPD, Intubation, Obstructive Sleep Apnea, Pulmonary Embolism, Pulmonary Hypertension, Pneumonia, Lung Cancer Gastrointestinal: History of: GERD, Gastrointestinal Bleed, GI Problems ( gastroparesis) No history of: Bowel Obstruction, Clostridium Difficile, Crohn's Disease, Diverticulitis/ Diverticulosis, Esophageal Varices, Hemorrhoids, Hematochezia, Hepatitis, Liver Problems, Pancreatitis, Polyps, Ulcerative Colitis, Gastrointestinal Cancer - Surgical History Cardiac Surgeries: Patient Denies: Femoral-Popliteal Bypass Graft, Cardiac Catheterization, Cardiac Surgery, Carotid Endarterectomy, Internal Defibrillator, Vascular Access Devices Thoracic Surgeries: Patient denies;: Organ Transplant, Lobectomy Neurologic Surgeries: Patient denies: Brain Aneurysm, Cerebral Hemorrhage, Neurologic Surgery HEENT Surgeries: Surgical HX of: Tonsilectomy & Adenoidectomy Patient denies: Carotid Endarterectomy Abdominal Surgeries: Surgical HX of: Cholecystectomy, Colonoscopy, EGD Patient denies: Abdominal Surgery, Appendectomy, Gastric Bypass Surgery, Hernia Repair, Splenectomy Reproductive Surgeries: Patient denies;: Genitourinary Surgery Orthopedic Surgeries: Surgical HX of;: Orthopedic Surgery (FOR L LEG FX; right wrist) - Family History Family History: Reports;: Family Diabetes, Family Hypertension - Social History Smoking Status: Current every day smoker Frequency of Alcohol Use: None Type of Drug Use: None 12 point system: reviewed and no additional remarkable complaints except as stated Exam - Constitutional Vitals: Period Temp Pulse Resp BP Sys/Rossi Pulse Ox Last 24 Hr 98.6 F-98.6 F 134-136 16-16 165-168/124-124 100 - General General appearance: alert, in no apparent distress - Head Head exam: Present: atraumatic, normocephalic, normal inspection - Eye Eye exam: Present: PERRL, EOMI. - ENT ENT exam: Present: mucous membranes dry. - Neck Neck exam: Present: normal inspection, full ROM, trachea midline - Chest Chest inspection: Present: normal inspection, symmetric chest wall rise. - Respiratory Respiratory exam: Present: normal lung sounds bilaterally. - Cardiovascular Cardiovascular exam: Present: normal rhythm, tachycardia, normal heart sounds. - Abdominal Exam Abdominal exam: Present: soft, normal bowel sounds - Extremities Exam Extremities exam: Present: normal inspection - Back Exam Back exam: Present: normal inspection - Neurological Exam Neurological exam: Present: alert, oriented X3, CN II-XII intact. - Psychiatric Psychiatric exam: Present: normal affect, normal mood - Skin Skin exam: Present: warm, dry, intact, normal color Results - Labs CBC & BMP: 07/29/16 Unknown 07/29/16 Unknown
[2016-07-29] MEDS ORDERED: LACTULOSE 20 GM/30 ML UDCUP PO PRN (01:44)
[2016-07-29] MEDS ORDERED: MORPHINE 2 MG/1 ML SYRINGE IV PRN (01:44)
[2016-07-29] MEDS ORDERED: DEXTROSE 50% 25 GM/50 ML VIAL IV PRN (01:44)
[2016-07-29] MEDS ORDERED: METOCLOPRAMIDE 10 MG/2 ML VIAL IV PRN (01:44)
[2016-07-29] MEDS ORDERED: GLUCAGON 1 MG VIAL IM PRN (01:44)
[2016-07-29] MEDS ORDERED: ONDANSETRON 4 MG/2 ML VIAL IV PRN (01:44)
[2016-07-29] MEDS ORDERED: hydrALAZINE 20 MG/1 ML VIAL IV PRN (01:44)
[2016-07-29] MEDS ORDERED: PROMETHAZINE 25 MG/1 ML VIAL IM PRN (01:46)
[2016-07-29] MEDS ORDERED: LABETALOL 20 MG/4 ML SYRINGE IV PRN (01:47)
[2016-07-29 06:34] LABS: Lactic Acid 1.2 MMOL/L (0.4-2.0)
[2016-07-29] MEDS: SODIUM CHLORIDE 0.9% 1,000 ML IV SCH ×2 (06:44→16:41)
[2016-07-29] MEDS: NITROGLYCERIN 2% OINT 1 INCH/GM PACK TOP SCH ×3 (06:45→17:02)
[2016-07-29] MEDS ORDERED: traMADol 50 MG TABLET PO PRN (07:05)
[2016-07-29] MEDS ORDERED: ACETAMINOPHEN 650 MG SUPP RECTAL PRN (07:10)
--- NOTE | 2016-07-29 08:01 | EKG Report ---
Stationary ECG Study [facility] ER Test Date: 07/28/2016 11:56:42 PM Pat Name: GERRY MO Department: Room: 268 Gender: M Instructional Design Manager: : 1975 Requested by: Augustus Del Valle Order Number: [id number] Reading MD: BARB WATTS Intervals [place] Rate: 134 P: 84 NV: 134 QRS: 94 QRSD: 71 T: -42 QT: 290 QTc: 369 Interpretive Statements SINUS TACHYCARDIA BORDERLINE RIGHT AXIS DEVIATION LEFT VENTRICULAR HYPERTROPHY AND ST-T CHANGE Electronically Signed On 07-30-16 22:32:07 CDT by BARB WATTS [email or web address]
[2016-07-29] MEDS: ASPIRIN EC 81 MG TABLET PO SCH (08:03)
[2016-07-29] MEDS: INSULIN REGULAR 100 UNIT/ML SUBCUT SCH ×4 (08:04→21:54)
[2016-07-29] MEDS: PANTOPRAZOLE 40 MG VIAL IV SCH ×2 (08:41→21:22)
[2016-07-29 08:47] LABS: CKMB % 1.5 %
[2016-07-29 08:48] LABS: Troponin I Only 0.082 NG/ML (0.00-0.045)
[2016-07-29 08:50] LABS: Apearance,Urine Slightly Hazy (Clear); Bilirubin,Urine Negative (Negative); Blood, Urine Moderate mg/dL (Negative); Glucose,Urine (UA) 150 mg/dL (Negative); Ketones,Urine 5 mg/dL (Negative); Mucus,Urine Occasional /LPF (Occasional); Nitrite,Urine Negative (Negative); Protein,Urine >=500 MG/DL; RBC,Urine 25 /HPF (0-4); Squamous Epithelial Cell,Urine Occasional /HPF (0-10); Urine Color Yellow (Yellow); Urine Specific Gravity 1.015 (1.001-1.035); Urine Urobilinogen < 2.0 EU/DL (0.2-1.0); WBC,Urine 4 /HPF (0-6)
[2016-07-29 08:53] LABS: Albumin 3.8 G/DL (3.4-5.0); Bilirubin,Total 0.5 MG/DL (0.2-1.0); Calcium 10.5 MG/DL (8.5-10.1); Magnesium 1.9 MG/DL (1.8-2.4); Osmolality,Calculated 291.4 MOS/KG (273-304); Potassium 4.5 MMOL/L (3.5-5.1); Risk Ratio 4.25; Total Protein 7.4 G/DL (6.4-8.3)
[2016-07-29 08:59] LABS: Barbiturates Screen,Urine Negative (Negative); Benzodiazepines Screen,Urine Negative (Negative); Cannabinoid Screen,Urine Positive (Negative); Opiate Screen,Urine Positive (Negative); Phencyclidine Screen,Urine Negative (Negative)
[2016-07-29] MEDS: METOCLOPRAMIDE 10 MG/2 ML VIAL IV SCH ×2 (11:56→17:19)
--- NOTE | 2016-07-29 12:14 | Gastrointestinal Consult Note ---
Assessment and Plan (1) Gastroparesis due to DM Status: Acute Assessment and plan: This patient certainly has a history of diabetes induced gastroparesis. I suspect this episode may be more linked to a food poisoning from eating the "tainted taco" approximately 72 hours ago. He has had violent nausea and vomiting but no diarrhea over the last 48-72 hours. He has had some low-grade coffee-ground emesis as a result, we need to concentrate on hydration and use IV Protonix and Reglan to help restore motility through his GI tract. He can resume clear liquids as tolerated. We want to fastidiously avoid narcotics in this patient even though he is having some pain he can have Tylenol, Ultram and Tylenol suppositories as needed. We do not want to slow his emptying further. His hematocrit has not dropped and I do not anticipate having to do endoscopy. Current Visit: Yes (2) Erosive esophagitis Status: Chronic Assessment and plan: This is likely the cause of the patient's coffee-ground emesis. This is been observed on previous upper endoscopy 05/23/15 was the date of her previous endoscopy which demonstrated LA class C erosive esophagitis at that time as well as evidence of gastroparesis. He has not been able tolerate a gastric emptying study due to emesis in the recent past. We might need to re-quantify this at some point. He seems to respond quite well to the Reglan and does not have any evidence of tardive dyskinesia at least in the past. Current Visit: Yes (3) Coffee ground emesis Status: Acute Assessment and plan: Likely due to the LA class C erosive esophagitis or some variant of esophagitis caused by the numerous episodes of nausea and vomiting versus Della-Brooks tear. See EGD report as noted above. Simple observation/hydration as well as Protonix and Reglan IV for the present time. Current Visit: No History of Present Illness Chief complaint: Nausea/vomiting, coffee-ground emesis, noncompliance History of present illness: Mr. Leonardo is a 41 year old male Who is well known to me from previous admissions, returns again after eating a tainted taco approximately 72 hours ago and is been having violent nausea and vomiting over the last 48-72 hours with coffee-ground emesis. He is well known to have gastroparesis and is responded quite nicely during previous episodes of food poisoning/gastroparesis worsening with IV Protonix and Reglan. We are trying to avoid narcotics in him as he slow down his gastroparesis. His white blood cell count is mildly elevated to 12.2, BUN and creatinine demonstrate acute on chronic renal failure with previous creatinine at 1.8 when last admitted back on 03/14/16 now up to 2.4. This patient has had issues with noncompliance. He does not have issues with Reglan but he does not like to take this at home. He is also experiencing some increased stress at home and is possibly going to be his who is an [employer] in [place]. His home medications include only famotidine and not Protonix as he has been given on numerous occasions by me. It is unclear if this is a food poisoning episode but the timing onset and white blood cell count makes this most likely in the differential. Home Medications Medication Instructions Recorded Confirmed Type Pantoprazole Tab [Protonix Tab] 40 mg PO DAILY 03/22/16 05/02/16 History Carvedilol [Coreg] 6.25 mg PO BID #60 tablet 05/04/16 Rx Famotidine Tab [Pepcid Tab] 20 mg PO BID #60 tablet 05/04/16 Rx Lisinopril 20 mg PO BID #60 tablet 05/04/16 Rx Sucralfate Liquid [Carafate Liquid] 1 gm PO Q6H #500 mls 05/04/16 Rx amLODIPine [Norvasc] 10 mg PO DAILY #30 tablet 05/04/16 Rx Allergies Allergy/AdvReac Type Severity Reaction Status Date / Time iodine Allergy Swelling Verified 07/28/16 23:48 of Lip/Tongue/Throat shrimp Allergy ITCHING Verified 07/28/16 23:48 Medical,Surgical,& Family Hx - Medical History Cardio: History of: Hypertension No history of: Aneurysm, Cardiac Dysrhythmia, Cerebrovascular Disease, Congenital Heart Disease, CHF, CAD, [place], Pacemaker, PVD, Valvular Heart Disease, Cardiovascular Problems Neurology: No history of: Brain Aneurysm, Cerebral Hemorrhage, Cerebrovascular Accident , Cerebral Palsy, Dementia, Migraine, Multiple Sclerosis, Parkinson's Disease, Peripheral Neuropathy, Seizures, TIA, Vertigo, Neurologocal Cancer HEENT: History of: Eye Problem (bleeding) Endocrine: History of: Diabetes Mellitus (NIDDM) (since 2000) No history of: Dyslipidemia Respiratory: History of: Asthma No history of: Bronchitis, COPD, Intubation, Obstructive Sleep Apnea, Pulmonary Embolism, Pulmonary Hypertension, Pneumonia, Lung Cancer Gastrointestinal: History of: GERD, Gastrointestinal Bleed, GI Problems ( gastroparesis) No history of: Bowel Obstruction, Clostridium Difficile, Crohn's Disease, Diverticulitis/ Diverticulosis, Esophageal Varices, Hemorrhoids, Hematochezia, Hepatitis, Liver Problems, Pancreatitis, Polyps, Ulcerative Colitis, Gastrointestinal Cancer - Surgical History Cardiac Surgeries: Patient Denies: Femoral-Popliteal Bypass Graft, Cardiac Catheterization, Cardiac Surgery, Carotid Endarterectomy, Internal Defibrillator, Vascular Access Devices Thoracic Surgeries: Patient denies;: Organ Transplant, Lobectomy Neurologic Surgeries: Patient denies: Brain Aneurysm, Cerebral Hemorrhage, Neurologic Surgery HEENT Surgeries: Surgical HX of: Tonsilectomy & Adenoidectomy Patient denies: Carotid Endarterectomy Abdominal Surgeries: Surgical HX of: Cholecystectomy, Colonoscopy, EGD Patient denies: Abdominal Surgery, Appendectomy, Gastric Bypass Surgery, Hernia Repair, Splenectomy Reproductive Surgeries: Patient denies;: Genitourinary Surgery Orthopedic Surgeries: Surgical HX of;: Orthopedic Surgery (FOR L LEG FX; right wrist) - Family History Family History: Reports;: Family Diabetes, Family Hypertension - Social History Smoking Status: Current every day smoker Frequency of Alcohol Use: None Type of Drug Use: None Review of systems: Constitutional: Denies fever, chills, positive for severe nausea, and vomiting Eyes: Denies dry eyes, and scleral icterus HENT: Denies headaches Cardiovascular: Denies acute chest pain and claudication Respiratory: Denies shortness of breath, wheezing, and difficulty breathing, denies cough Gastrointestinal: As noted in the HPI Genitourinary: Denies dysuria and hematuria Neurologic: Denies vision loss, and loss of sensation Musculoskeletal: Denies joint swelling, joint stiffness, and muscular weakness Psychiatric: Denies depression and anamika symptoms Heme-Lymph: Denies easy bruising, lymph node enlargement or tenderness, night sweats, excessive bleeding Allergies-immunologic: Denies pruritus and rhinorrhea Exam - Constitutional Vitals: Period Temp Pulse Resp BP Sys/Rossi Pulse Ox Last 24 Hr 98 F-99 F 119-136 16-20 135-168/91-124 97-100 General appearance: mild distress Exam: Constitutional: Well-developed, well-nourished, alert, and in no acute distress Head and face: Head: Normocephalic atraumatic Eyes: Conjunctiva without injection, no gross scleral icterus, pupils equal and round bilaterally Ears: Intact to conversation in both ears Nose: External appearance is normal, nares patent Mouth: Oral mucous membranes moist without erythema dentition noted to be without erosion Neck: Normal appearance, no masses or tenderness, trachea midline Thyroid: Gland midline and appropriate size for age Respiratory: Normal respiratory effort, clear to auscultation without wheezes, rhonchi or rales Cardiovascular: Regular rate and rhythm, normal S1, S2, the exam is without rubs, murmurs or gallops. Gastrointestinal: Epigastric tenderness to palpation, normal active bowel sounds, tone normal without rigidity or guarding, no masses present, no hepatomegaly, no spleen tip felt. No rectal exam obtained. Lymphatic: Neck without adenopathy, axilla without lymphadenopathy present Musculoskeletal: Right and left lower extremities without evidence of edema Skin and subcutaneous tissue: No rashes or ulcerations noted, normal skin turgor, digits and nails without clubbing/cyanosis/deformities. Neurologic: The patient is grossly oriented to person place and time, cranial nerves show tongue movements are normal with normal tongue extrusion midline, light touch sensation is intact. Psychiatric: No hallucinations or delusions are present, does not appear depressed Results - Labs CBC & BMP: 07/29/16 Unknown 07/29/16 Unknown
--- NOTE | 2016-07-29 14:03 | XRay Report ---
Referring Physician: Augustus Concepcion Exam: XR abdomen 1V Date: July 29, 2016 at 12:33 AM Reason: Generalized abdominal pain Comparison: KUB March 22, 2016 Findings: There is mild scattered air within the bowel but no evidence of bowel obstruction. No free air is identified. Surgical clips are present within the right upper abdomen, suggesting cholecystectomy. The renal shadows are partially obscured, but no definite renal calculi are identified. Pelvic phleboliths are noted. No acute osseous process is seen. Impression: No acute abdominal process is identified. PROCEDURE INTERPRETED AT [facility] DEPARTMENT OF RADIOLOGY Final Report Signed by: Dr. Marisol Olivo
--- NOTE | 2016-07-29 14:03 | XRay Report ---
Referring Physician: Augustus Concepcion Exam: XR chest 1V portable Date: July 27, 2016 at 12:31 AM Reason: Generalized abdominal pain Comparison: Chest one view portable May 02, 2016 Findings: The cardiac silhouette is normal in size. No focal consolidation, pneumothorax or pleural effusion is identified. There may be a small calcified granuloma within the right midlung zone. No acute osseous process is seen. Impression: No acute cardiopulmonary process is identified. PROCEDURE INTERPRETED AT [facility] DEPARTMENT OF RADIOLOGY Final Report Signed by: Dr. Marisol Olivo
--- NOTE | 2016-07-29 14:03 | XRay Report ---
Referring Physician: Augustus Concepcion Exam: XR abdomen 1V Date: July 29, 2016 at 7:27 AM Reason: Generalized abdominal pain Comparison: Abdomen one view July 29, 2016 at 12:33 AM Findings: There has been interval development of gaseous distention of the small bowel within the left abdomen. Mild scattered air is also seen within the colon, and this could represent ileus or partial small bowel obstruction. Partial small bowel obstruction is favored. No free air is identified. The renal shadows are largely obscured. Surgical clips are present within the right upper abdomen, suggesting cholecystectomy. No acute osseous process is seen. Impression: There has been interval development of gaseous distention of the small bowel within the left abdomen. Mild scattered air is also seen within the colon. This could represent ileus or partial small bowel obstruction, but partial small bowel obstruction is favored. PROCEDURE INTERPRETED AT [facility] DEPARTMENT OF RADIOLOGY Final Report Signed by: Dr. Marisol Olivo
--- NOTE | 2016-07-29 14:04 | XRay Report ---
Referring Physician: Augustus Concepcion Exam: XR chest 1V portable Date: July 29, 2016 at 7:27 AM Reason: Shortness of breath Comparison: Chest one view portable July 29, 2016 at 12:31 AM Findings: The cardiac silhouette is normal in size. No focal consolidation, pneumothorax or pleural effusion is identified. No acute osseous process is seen. Impression: No acute cardiopulmonary process is identified. PROCEDURE INTERPRETED AT [facility] DEPARTMENT OF RADIOLOGY Final Report Signed by: Dr. Marisol Olivo
--- NOTE | 2016-07-29 14:37 | Hospitalist Progress Note ---
Hospitalist: Subjective Interval history: Pt reports last episode of emesis was 24 hours ago. He still reports nausea. No abd pain. No fever. Last Bm 3-4 days ago. He denies any chest pain or SOB, palpitations. 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 Schedule Novolog 70/30 10 U BID. Cont accuchecks. Will not be able to continue metformin given elevated creatinine. (3) Hypertensive urgency Status: Acute Current Visit: Yes - BP better controlled. Resume home meds once oral intake improves and ID'd by pharmacy. Cont PRN hydralazine. Check TSH. (4) Chronic kidney disease, stage III Status: Chronic Current Visit: Yes - Nephrology to see. IVF. Repeat labs in the am (5) Elevated troponin - clinically it does not appear that pt has had a cardiac event. I am unable to see any former ECHO in the past. Will check and if abnormal, will consult cardiology. Recent clinical articles have indicated that troponins are unreliable to assess cardiac disease in renal patients. - on telemetry. Probably able to dc this soon. Check TSH. Check FLP. Current Visit: Yes D/W pt and nurse. All questions answered.
[2016-07-29] MEDS ORDERED: MAGNESIUM CITRATE 300 ML BOTTLE PO PRN (14:39)
[2016-07-29] MEDS ORDERED: BISACODYL 10 MG SUPP RECTAL PRN (14:39)
[2016-07-29] MEDS ORDERED: MAGNESIUM CITRATE 300 ML BOTTLE PO ONE (14:40)
[2016-07-29] MEDS: INSULIN ASPART PROTAMINE/ASPART 70/30 100 UNIT/ML SUBCUT SCH (17:09)
[2016-07-29] MEDS ORDERED: BISACODYL 5 MG TABLET PO SCH (21:00)
[2016-07-30] MEDS: NITROGLYCERIN 2% OINT 1 INCH/GM PACK TOP SCH ×3 (00:31→16:09)
[2016-07-30] MEDS: METOCLOPRAMIDE 10 MG/2 ML VIAL IV SCH ×3 (00:35→14:15)
[2016-07-30] MEDS ORDERED: ZALEPLON 5 MG CAPSULE PO ONE (00:48)
[2016-07-30 05:19] LABS: Basophils # 0.1 10*3/uL (0.0-0.2); Basophils % 0.3 % (0.0-0.8); Eosinophils # 0.1 10*3/uL (0.0-0.87); Eosinophils % 0.5 % (0.00-10.9); Hematocrit 38.4 VOL% (42.0-52.0); Hemoglobin 12.9 GM/DL (14.0-18.0); Immature Granulocytes % 0.5 %; Immature Granulocytes Absolute 0.07 #; Lymphocytes # 2.2 10*3/uL (1.4-4.0); Lymphocytes % 14.1 % (21.2-54.2); Mean Corpuscular HGB Conc 33.6 GM/DL (32-36); Mean Corpuscular Hemoglobin 26 PG (27-34); Mean Platelet Volume 10.6 FL (9.6-12.0); Monocytes # 1.2 10*3/uL (0.11-0.8); Monocytes % 7.6 % (1.7-12.7); Neutrophils # 11.9 10*3/uL (1.4-7.4); Platelet Count 543 T/CUMM (130-400); Red Blood Count 4.92 MC/CUMM (3.8-5.5); Red Cell Distribution Width 14.6 % (9.3-17.3); White Blood Count 15.5 T/CUMM (4-12)
[2016-07-30 05:48] LABS: Risk Ratio 4.83; VLDL CHOLESTEROL 21.6 MG/DL
[2016-07-30 05:57] LABS: Calcium 8.9 MG/DL (8.5-10.1); Free T4 (Free Thyroxine) 1.35 NG/DL (0.76-1.46); Osmolality,Calculated 278.8 MOS/KG (273-304); Phosphorous 3.8 MG/DL (2.5-4.9); Potassium 4.1 MMOL/L (3.5-5.1); Thyroid Stimulating Hormone 0.324 uIU/ml (0.358-3.74)
[2016-07-30] MEDS: ASPIRIN EC 81 MG TABLET PO SCH (08:03)
[2016-07-30] MEDS: PANTOPRAZOLE 40 MG VIAL IV SCH (08:04)
[2016-07-30] MEDS: INSULIN ASPART PROTAMINE/ASPART 70/30 100 UNIT/ML SUBCUT SCH (08:17)
[2016-07-30] MEDS: INSULIN REGULAR 100 UNIT/ML SUBCUT SCH ×2 (08:17→16:09)
[2016-07-30] MEDS: SODIUM CHLORIDE 0.9% 1,000 ML IV SCH ×2 (08:17→09:44)
--- NOTE | 2016-07-30 11:03 | Ultrasound Report ---
Referring Physician: Art Kaur Exam: US renal Bilateral Date: July 30, 2016 Reason: Diabetic nephropathy, abnormal creatinine Comparison: Renal ultrasound March 12, 2016 Technique: Grayscale and color flow images of both kidneys were obtained. Ultrasound images were captured and stored. Findings: The right kidney measures 11.4 x 6.7 x 5.6 cm, and the left kidney measures 11.3 x 6.1 x 5.7 cm. No hydronephrosis or suspicious renal lesion is identified. The renal parenchyma echogenicity is unremarkable as visualized. Impression: No acute renal process is identified. PROCEDURE INTERPRETED AT [facility] DEPARTMENT OF RADIOLOGY Final Report Signed by: Dr. Marisol Olivo
--- NOTE | 2016-07-30 11:22 | Hospitalist Progress Note ---
Hospitalist: Subjective Interval history: Abd pain improved. No further emesis. Tolerating liquids. Wants to advance diet. No fever. No BM yet but declined stool softeners/ laxatives. No cp or SOB. Exam - Constitutional Vitals: Period Temp Pulse Resp BP Sys/Rossi Pulse Ox Last 24 Hr 98.0 F-99.9 F 97-106 18-20 165-193/90-99 96-100 Exam: A and O x 3 RRR no M CTAB nonlabored Soft, NT, ND, +hypoactive BS Warm no c/c/e, nonfocal Results - Labs CBC & BMP: 07/30/16 04:22 07/30/16 04:22 - Impressions (1) Acute Gastroparesis due to DM Status: Acute Current Visit: Yes - Nausea and vomiting may be related to DM gastroparesis, constipation, and possibly cyclic vomiting syndrome from marijuana. Recommend cessation opf marijuana. - Advance diet to full liquids - Antiemetics as needed - Laxatives - Encouraged good control of blood sugars (2) Diabetes mellitus type 2 with good control of HgbA1c 6.7 with complications of DM neuropathy and nephropathy Status: Acute Current Visit: Yes -BS better controlled. Pt has refused Novolog 70/30 10 U BID (has not received) . Cont I.S.S. for now. As diet improves, may need to schedule the insulin. Cont accuchecks. Will not be able to continue metformin given elevated creatinine. (3) Hypertensive urgency Status: Acute Current Visit: Yes - BP better controlled. Unable to give Lisinopril and Aldactone due to elevated creatinine. Cont PRN hydralazine. TSH low with a normal Free T4. Recheck in 1-2 weeks once over this acute illness. (4) Chronic kidney disease, stage III Status: Chronic Current Visit: Yes - Nephrology to see. IVF. creatinine stable at 2.2. F/U renal U/S (5) Elevated troponin - clinically it does not appear that pt has had a cardiac event. I am unable to see any former ECHO in the past. ECHO pending. Cards to see. - on telemetry. Probably able to dc this soon. FLP reviewed. Current Visit: Yes D/W pt and nurse. All questions answered.
[2016-07-30 11:29] LABS: CKMB % 1.5 %
[2016-07-30] MEDS ORDERED: amLODIPine 10 MG TABLET PO SCH (11:30)
[2016-07-30 11:33] LABS: Troponin I Only 0.147 NG/ML (0.00-0.045)
[2016-07-30 11:59] VITALS: BP 102/71
--- NOTE | 2016-07-30 12:43 | Nephrology Consult Note ---
History of Present Illness Chief complaint: CKD Stage 2-3 History of present illness: Mr. Leonardo is a 41 year old male whom we are asked to see with a serum creatinine of 2.2. He has been diabetic since the year 2000. He has had previous admission for gastroparesis. He has been aware of his chronic renal impairment and was told 5 years ago that he had abnormal renal function. Renal ultrasound done today demonstrates no evidence of obstruction with normal size kidneys. He has had difficult to control hypertension but recently has been controlled. On physical exam he is in no distress he is tolerating a liquid diet well. Chest is clear heart without rub or gallop abdomen soft. He has no peripheral edema. Impression diabetic nephropathy #2 hypertension #3 diabetic gastroparesis by history Plan he will continue his home medicines including the VALENTE inhibitor Home Medications Medication Instructions Recorded Confirmed Type Pantoprazole Tab [Protonix Tab] 40 mg PO DAILY 03/22/16 07/29/16 History Amlodipine Besylate [Amlodipine 10 mg PO DAILY 07/29/16 07/29/16 History Besylate] Carvedilol [Carvedilol] 6.25 mg PO DAILY 07/29/16 07/29/16 History Glyburide/Metformin HCl 1 tablet PO BID 07/29/16 07/29/16 History [Glyburide-Metformin 5-500 mg] Lisinopril 20 mg PO DAILY 07/29/16 07/29/16 History Spironolactone [Spironolactone] 25 mg PO DAILY 07/29/16 07/29/16 History Allergies Allergy/AdvReac Type Severity Reaction Status Date / Time iodine Allergy Swelling Verified 07/28/16 23:48 of Lip/Tongue/Throat shrimp Allergy ITCHING Verified 07/28/16 23:48 Medical,Surgical,& Family Hx - Medical History Cardio: History of: Hypertension No history of: Aneurysm, Cardiac Dysrhythmia, Cerebrovascular Disease, Congenital Heart Disease, CHF, CAD, CA, Pacemaker, PVD, Valvular Heart Disease, Cardiovascular Problems Neurology: No history of: Brain Aneurysm, Cerebral Hemorrhage, Cerebrovascular Accident , Cerebral Palsy, Dementia, Migraine, Multiple Sclerosis, Parkinson's Disease, Peripheral Neuropathy, Seizures, TIA, Vertigo, Neurologocal Cancer HEENT: History of: Eye Problem (bleeding) Endocrine: History of: Diabetes Mellitus (NIDDM) (since 2000) No history of: Dyslipidemia Respiratory: History of: Asthma No history of: Bronchitis, COPD, Intubation, Obstructive Sleep Apnea, Pulmonary Embolism, Pulmonary Hypertension, Pneumonia, Lung Cancer Gastrointestinal: History of: GERD, Gastrointestinal Bleed, GI Problems ( gastroparesis) No history of: Bowel Obstruction, Clostridium Difficile, Crohn's Disease, Diverticulitis/ Diverticulosis, Esophageal Varices, Hemorrhoids, Hematochezia, Hepatitis, Liver Problems, Pancreatitis, Polyps, Ulcerative Colitis, Gastrointestinal Cancer - Surgical History Cardiac Surgeries: Patient Denies: Femoral-Popliteal Bypass Graft, Cardiac Catheterization, Cardiac Surgery, Carotid Endarterectomy, Internal Defibrillator, Vascular Access Devices Thoracic Surgeries: Patient denies;: Organ Transplant, Lobectomy Neurologic Surgeries: Patient denies: Brain Aneurysm, Cerebral Hemorrhage, Neurologic Surgery HEENT Surgeries: Surgical HX of: Tonsilectomy & Adenoidectomy Patient denies: Carotid Endarterectomy Abdominal Surgeries: Surgical HX of: Cholecystectomy, Colonoscopy, EGD Patient denies: Abdominal Surgery, Appendectomy, Gastric Bypass Surgery, Hernia Repair, Splenectomy Reproductive Surgeries: Patient denies;: Genitourinary Surgery Orthopedic Surgeries: Surgical HX of;: Orthopedic Surgery (FOR L LEG FX; right wrist) - Family History Family History: Reports;: Family Diabetes, Family Hypertension - Social History Smoking Status: Current every day smoker Frequency of Alcohol Use: None Type of Drug Use: None Review of Systems 12 point system: reviewed and no additional remarkable complaints except as stated Exam - Vital Signs Vital signs: Period Temp Pulse Resp BP Sys/Rossi Pulse Ox Last 24 Hr 98.6 F-99.9 F 78-106 18-20 102-193/71-99 96-98 - General Appearance General appearance: well-developed, well-nourished, appears started age EENT: ATNC Neck: no JVD, no thyromegaly, no carotid bruit, supple Respiratory: no kyphosis, no scoliosis Cardiology: no murmurs, no rub, no gallops, no edema, regular rate, regular rhythm, normal S1, normal S2 Gastrointestinal: normoactive bowel sounds Integumentary: no rash, warm and dry Neurologic: no focal deficit, no asterixis, alert and oriented x3, reflexes 2+ and symmetric, gait normal, strength 5/5 Musculoskeletal: no deformities, no erythema, no cyanosis, no clubbing Psychiatric: mood/affect appropriate, cooperative Results - Labs CBC & BMP: 07/30/16 04:22 07/30/16 04:22 Assessment and Plan - Time spent with patient Time spent with patient: Greater than 30 minutes (1) Chronic renal insufficiency, stage II (mild) Status: Chronic Current Visit: Yes (2) Hypertension Status: Chronic Current Visit: Yes (3) Diabetes mellitus Status: Acute Current Visit: No Specialty Discharge - Follow Up or Referrals - Speciality Discharge Instructions Nephrology Instructions: Agree with VALENTE inhibitor
--- NOTE | 2016-07-30 16:49 | Discharge Summary ---
Hospital Course - Hospital Course Hospital Course: Pt is a 41 year old male with a history of DM and DM gastroparesis who presented to the hospital with intractable nausea, vomiting and abdominal pain. Urine drug screen was positive for marijuana. It was thought nausea and vomiting may be related to DM gastroparesis, constipation, and possibly cyclic vomiting syndrome from marijuana. Pt was encouraged to do cessation of marijuana. Pt was started on a clear diet and advance as tolerated. Antiemetics and laxatives were also given as needed. HgbA1c was noted to be 6.7 suggesting good control. He was treated with an insulin sliding scale. I have advised pt not continue metformin due to elevated creatinine. For hypertensive urgency, pt was started on Hydralazine IV prn. Unable to give Lisinopril and Aldactone due to elevated creatinine. TSH low with a normal Free T4. I recommend recheck in 1-2 weeks once over this acute illness. For CKD stage 3, nephrology evaluated patient and renal ultrasound was done but results pending at the time of exam. Creatinine was stable at 2.2. Serial troponin was noted to be mildly elevated. Clinically it does not appear that pt has had a cardiac event. I am unable to see any former ECHO in the past. ECHO was ordered but results pending at the time of dictation. Given that troponins are unreliable in patients with renal disease to assess cardiac risk, Cardiology was consulted to evaluate this patient. Lipid panel was sent. Before, cardiology could evaluate and make recommendations, pt left AMA. - Time spent with patient Time with patient DS: Greater than 30 minutes (37 minutes) Diagnosis - Discharge Diagnosis (1) Abdominal pain Status: Resolved (2) Anemia Status: Chronic (3) Dehydration Status: Resolved (4) Diabetic gastroparesis Status: Chronic (5) Hypertensive urgency Status: Resolved (6) Intractable nausea and vomiting Status: Resolved (7) Troponin I above reference range Status: Acute (8) Chronic renal insufficiency, stage II (mild) Status: Chronic (9) Diabetes mellitus Status: Chronic (10) Essential hypertension Status: Chronic Discharge Plan - Discharge Data Disposition: Left Against Medical Advice Condition at Discharge: Stable Discharge Diet: diabetic diet, heart healthy Activity: other (avoid tobacco use) Contact your physician if you experience:: fever over 101, Difficulty voiding, Redness or swelling, Nausea/Vomiting, Shortness of breath, Bleeding, pain uncontrolled by pain medications - Discharge Medications No Action Carvedilol [Carvedilol] 6.25 mg PO DAILY Pantoprazole Tab [Protonix Tab] 40 mg PO DAILY Spironolactone [Spironolactone] 25 mg PO DAILY Glyburide/Metformin HCl [Glyburide-Metformin 5-500 mg] 1 tablet PO BID Amlodipine Besylate [Amlodipine Besylate] 10 mg PO DAILY Lisinopril 20 mg PO DAILY - Follow Up or Referral Follow Up: md, pcp [Other] - 2 Weeks - Forms/Instructions Exam - Constitutional Vitals: Period Temp Pulse Resp BP Sys/Rossi Pulse Ox Last 24 Hr 98.6 F-99.9 F 78-106 20-20 102-193/71-99 96-98 Exam: see physical exam from today's progress note. Discharge Results Procedures and tests throughout hospitalization: Pending Orders 07/30/16 15:56 Creatinine,Urine Random Routine Total Protein,Urine Random Routine 07/30/16 16:03 Troponin,CKMB & Ck Total Q6H Labs on day of discharge: Labs from last 24 hours 07/30/16 07/30/16 07/30/16 11:16 10:34 07:49 WBC RBC Hgb Hct MCV MCH MCHC RDW Plt Count MPV Neut % (Auto) Lymph % (Auto) [place] % (Auto) Eos % (Auto) Baso % (Auto) Neut # (Auto) Lymph # (Auto) [place] # (Auto) Eos # (Auto) Baso # (Auto) Immature Gran % Nucleated RBC % Immature Gran # Nucleated RBCs # Sodium Potassium Chloride Carbon Dioxide Anion Gap BUN Creatinine GFR Calculation BUN/Creatinine Ratio Glucose POC Glucose 159 H 138 H Hemoglobin A1c Calculated Osmolality Calcium Phosphorus Total Creatine Kinase 632 H D CK-MB (CK-2) 9.2 H CK and CKMB Interp 1.5 Troponin I 0.147 H D Albumin Triglycerides Cholesterol LDL Cholesterol VLDL Cholesterol HDL Cholesterol Heart Disease Risk Ratio Free T4 TSH 3rd Generation 07/30/16 07/30/16 07/30/16 04:22 04:22 04:22 WBC RBC Hgb Hct MCV MCH MCHC RDW Plt Count MPV Neut % (Auto) Lymph % (Auto) [place] % (Auto) Eos % (Auto) Baso % (Auto) Neut # (Auto) Lymph # (Auto) [place] # (Auto) Eos # (Auto) Baso # (Auto) Immature Gran % Nucleated RBC % Immature Gran # Nucleated RBCs # Sodium 137 Potassium 4.1 Chloride 98 Carbon Dioxide 28 Anion Gap 15.1 H BUN 23 H Creatinine 2.20 H GFR Calculation 49 BUN/Creatinine Ratio 10.00 Glucose 128 H POC Glucose Hemoglobin A1c 6.7 H Calculated Osmolality 278.8 Calcium 8.9 Phosphorus 3.8 Total Creatine Kinase CK-MB (CK-2) CK and CKMB Interp Troponin I Albumin 3.0 L Triglycerides 108 Cholesterol 261 H LDL Cholesterol 180.0 VLDL Cholesterol 21.6 HDL Cholesterol 54 Heart Disease Risk Ratio 4.83 Free T4 1.35 TSH 3rd Generation 0.324 L 07/30/16 07/29/16 07/29/16 04:22 21:48 15:59 WBC 15.5 H RBC 4.92 Hgb 12.9 L Hct 38.4 L MCV 78.0 L MCH 26 L MCHC 33.6 RDW 14.6 Plt Count 543 H D MPV 10.6 Neut % (Auto) 77.0 H Lymph % (Auto) 14.1 L [place] % (Auto) 7.6 Eos % (Auto) 0.5 Baso % (Auto) 0.3 Neut # (Auto) 11.9 H Lymph # (Auto) 2.2 [place] # (Auto) 1.2 H Eos # (Auto) 0.1 Baso # (Auto) 0.1 Immature Gran % 0.5 Nucleated RBC % 0.0 Immature Gran # 0.07 Nucleated RBCs # 0.00 Sodium Potassium Chloride Carbon Dioxide Anion Gap BUN Creatinine GFR Calculation BUN/Creatinine Ratio Glucose POC Glucose 126 H 100 Hemoglobin A1c Calculated Osmolality Calcium Phosphorus Total Creatine Kinase CK-MB (CK-2) CK and CKMB Interp Troponin I Albumin Triglycerides Cholesterol LDL Cholesterol VLDL Cholesterol HDL Cholesterol Heart Disease Risk Ratio Free T4 TSH 3rd Generation DS: Provider Date of admission: 07/29/16 01:28 Primary care physician: . No PCP Attending physician on admission: Alex Andujar MD Consults: 07/29/16 01:44 Consult to Case Mgmt/Social Srvs [CONS] Routine Reason for Case Mgmt/Social Srvs: Rehab Consult to [facility], Educator [CONS] Routine Reason for Cinnamon Grinder: Diabetes Education Consult to Physician [CONS] Routine Comment: Gastroparesis Consulting Provider: Rowdy Kam When should Consulting Provider be notified: In am Consult to Physician [CONS] Routine Comment: Renal insufficiency Consulting Provider: Art Kaur When should Consulting Provider be notified: In am Consult to Specialist Group: Nephrology Person Notified: JEFFERSON Date Notified: 07/30/16 Time Notified: 07:35 07/29/16 14:51 Consult to Pharmacy [CONS] Routine Reason for Pharmacy Consult: Home Medication Review Comment: please ID home meds and update records so we can resume 07/30/16 09:58 Consult to Physician [CONS] Routine Comment: ELEVATED TROPONINS Consulting Provider: Sonu Alonzo Consult to Specialist Group: Cardiology When should Consulting Provider be notified: Now Person Notified: ALYSHA Date Notified: 07/30/16 Time Notified: 10:40 Discharging clinician: Mariana Dudley MD
--- NOTE | 2016-07-30 21:09 | ECHO Report ---
Artemio Leonardo Exam Date: 07/30/2016 09:10 Referring Physician: Technologist: Mague Bonilla Age: 41 Ht (in): 69 Wt (lb): 186 Gender: M Exam Location: [facility] Echo Indications: Hypotension, Atrial fibrillation, LETHA, COPD BP: 105 / 64 HR: 84 Rhythm: Sinus Technical Quality: IMPRESSIONS Normal left ventricular size, with severe concentric hypertrophy, without outflow tract obstruction. Left ventricular ejection fraction is estimated at 55%. Grade 1 diastolic dysfunction. Mild left atrial enlargement. MEASUREMENTS (Male / Female) Normal Values 2D ECHO LV Diastolic Diameter PLAX 2.9 cm 4.2 - 5.9 / 3.9 - 5.3 cm LV Systolic Diameter PLAX 2.5 cm LV Fractional Shortening PLAX 12.8 % IVS Diastolic Thickness 2.8 cm 0.6 - 1.0 / 0.6 - 0.9 cm LVPW Diastolic Thickness 3.0 cm 0.6 - 1.0 / 0.6 - 0.9 cm RV Internal Dim ED PLAX 3.3 cm Aortic Root Diameter 3.3 cm LA Systolic Diameter LX 4.0 cm 3.0 - 4.0 / 2.7 - 3.8 cm DOPPLER TR Peak Velocity 191.0 cm/s TR Peak Gradient 14.6 mmHg FINDINGS Left Ventricle Normal left ventricular size, with severe concentric hypertrophy, without outflow tract obstruction. Left ventricular ejection fraction is estimated at 55%. Grade 1 diastolic dysfunction. Right Ventricle The right ventricle is normal in size and function. Right Atrium The right atrium is normal in size. Left Atrium The left atrium is mildly dilated. Mitral Valve Morphologically normal mitral valve without significant stenosis or prolapse. There is trace mitral regurgitation. Aortic Valve Morphologically normal aortic valve without significant sclerosis or stenosis. There is no aortic regurgitation. Tricuspid Valve Morphologically normal tricuspid valve without significant stenosis or regurgitation. Insufficient data to estimate pulmonary artery systolic pressure. Pulmonic Valve Morphologically normal pulmonic valve. Trace pulmonary valve regurgitation. Pericardium Normal pericardium without effusion. Aorta Normal ascending aorta dimension. Sonu Alonzo (Electronically Signed) Final Date: 30 Jul 2016 21:07
[2016-07-31] MEDS ORDERED: LISINOPRIL 5 MG TABLET PO SCH (09:00)
[2016-07-31] MEDS ORDERED: CARVEDILOL 6.25 MG TABLET PO SCH (09:00)
== END 2016-07-30 16:08 | disposition left against medical advice (07) | DRG 73 ==
LOC: N.ED 23:35 → N.EDINP 07-29 01:28 → SUATTDRO 07-29 01:28 → N.TELES 07-29 01:43
PROVIDERS: ADMIT Internal Medicine; ATTEND Pediatrics

== ENCOUNTER 2016-08-10 13:58 | Observation (INO) ==
[2016-08-10] MEDS ORDERED: ONDANSETRON 4 MG/2 ML VIAL IV STA (14:50)
[2016-08-10] MEDS ORDERED: SODIUM CHLORIDE 0.9% 500 ML IV STA (14:50)
[2016-08-10] MEDS ORDERED: LABETALOL 20 MG/4 ML SYRINGE IV STA (14:51)
[2016-08-10] MEDS ORDERED: ONDANSETRON 4 MG/2 ML VIAL ONE (15:18)
[2016-08-10] MEDS ORDERED: LABETALOL 20 MG/4 ML SYRINGE IV ONE (15:18)
[2016-08-10 15:19] LABS: Basophils # 0.1 10*3/uL (0.0-0.2); Basophils % 0.3 % (0.0-0.8); Eosinophils # 0.1 10*3/uL (0.0-0.87); Eosinophils % 0.3 % (0.00-10.9); Hematocrit 40.4 VOL% (42.0-52.0); Hemoglobin 13.8 GM/DL (14.0-18.0); Immature Granulocytes % 0.3 %; Immature Granulocytes Absolute 0.06 #; Lymphocytes % 11.8 % (21.2-54.2); Mean Corpuscular HGB Conc 34.2 GM/DL (32-36); Mean Corpuscular Hemoglobin 27 PG (27-34); Mean Platelet Volume 9.9 FL (9.6-12.0); Monocytes # 1.1 10*3/uL (0.11-0.8); Monocytes % 6.3 % (1.7-12.7); Neutrophils # 13.9 10*3/uL (1.4-7.4); Platelet Count 596 T/CUMM (130-400); Red Blood Count 5.18 MC/CUMM (3.8-5.5); Red Cell Distribution Width 14.8 % (9.3-17.3); White Blood Count 17.2 T/CUMM (4-12)
[2016-08-10 15:34] LABS: Calcium 9.8 MG/DL (8.5-10.1); Osmolality,Calculated 280.8 MOS/KG (273-304); Potassium 4.4 MMOL/L (3.5-5.1)
--- NOTE | 2016-08-10 16:02 | Emergency Department Note ---
Judith Diaz Hilary, am scribing for, and in the presence of, Matthew Bey MD 14:53. ISotero Phillip K, MD, personally performed the services described in this documentation, ascribed by Karen Wong in my presence, and it is both accurate and complete 528 . Arrival - Arrival Chief Complaint: Nausea/Vomiting/Diarrhea Stated Complaint: vomiting, feels dehydrated ED Nursing Triage Note: pt was seen here last night for n/v. pt states dont think they gave me enough iv fuilds. Mode of Arrival: Ambulatory Limitations: No Limitations Source: Patient, RN Notes Reviewed Time Seen by Provider: 08/10/16 14:40 - History of Present Illness HPI Narrative: Pt is a 41 y/o male presenting to the ED with c/o dehydration which onset today. He states that he was seen here yesterday for nausea and vomiting and that he feels like he needs more fluid. Pt confirms abdominal pain, nausea and vomiting. He is vomiting in the room, clear fluid and his blood pressure is high because he hasn't been able to take his blood pressure meds for two days due to his vomiting. Pt has a PMHx of HTN, NIDDM, and Gastroparesis. No other complaints or problems stated in the ED. Onset (ago): day(s) Severity: severe Allergies/Adverse Reactions: Allergies Allergy/AdvReac Type Severity Reaction Status Date / Time iodine Allergy Swelling Verified 07/28/16 23:48 of Lip/Tongue/Throat shrimp Allergy ITCHING Verified 07/28/16 23:48 Home Medications: Home Medications Medication Instructions Recorded Confirmed Type Pantoprazole Tab [Protonix Tab] 40 mg PO DAILY 03/22/16 08/10/16 History Amlodipine Besylate [Amlodipine 10 mg PO DAILY 07/29/16 08/10/16 History Besylate] Carvedilol [Carvedilol] 6.25 mg PO DAILY 07/29/16 08/10/16 History Glyburide/Metformin HCl 1 tablet PO BID 07/29/16 08/10/16 History [Glyburide-Metformin 5-500 mg] Lisinopril 20 mg PO DAILY 07/29/16 08/10/16 History Spironolactone [Spironolactone] 25 mg PO DAILY 07/29/16 08/10/16 History Ondansetron [Ondansetron Odt] 8 mg PO Q4H PRN #20 tab.nelsondis 08/10/16 08/10/16 Rx Review of System - Review of System 12 point system: reviewed and no additional remarkable complaints except as stated - Review of System Constitutional: Present: other (dehydrated). Absent: fever Gastrointestinal: Present: abdominal pain, nausea, vomiting Medical,Surgical,& Family Hx - Medical History Cardio: History of: Hypertension No history of: Aneurysm, Cardiac Dysrhythmia, Cerebrovascular Disease, Congenital Heart Disease, CHF, CAD, [place], Pacemaker, PVD, Valvular Heart Disease, Cardiovascular Problems Neurology: No history of: Brain Aneurysm, Cerebral Hemorrhage, Cerebrovascular Accident , Cerebral Palsy, Dementia, Migraine, Multiple Sclerosis, Parkinson's Disease, Peripheral Neuropathy, Seizures, TIA, Vertigo, Neurologocal Cancer HEENT: History of: Eye Problem (bleeding) Endocrine: History of: Diabetes Mellitus (NIDDM) (since 2000) No history of: Dyslipidemia Respiratory: History of: Asthma No history of: Bronchitis, COPD, Intubation, Obstructive Sleep Apnea, Pulmonary Embolism, Pulmonary Hypertension, Pneumonia, Lung Cancer Gastrointestinal: History of: GERD, Gastrointestinal Bleed, GI Problems ( gastroparesis) No history of: Bowel Obstruction, Clostridium Difficile, Crohn's Disease, Diverticulitis/ Diverticulosis, Esophageal Varices, Hemorrhoids, Hematochezia, Hepatitis, Liver Problems, Pancreatitis, Polyps, Ulcerative Colitis, Gastrointestinal Cancer - Surgical History Cardiac Surgeries: Patient Denies: Femoral-Popliteal Bypass Graft, Cardiac Catheterization, Cardiac Surgery, Carotid Endarterectomy, Internal Defibrillator, Vascular Access Devices Thoracic Surgeries: Patient denies;: Organ Transplant, Lobectomy Neurologic Surgeries: Patient denies: Brain Aneurysm, Cerebral Hemorrhage, Neurologic Surgery HEENT Surgeries: Surgical HX of: Tonsilectomy & Adenoidectomy Patient denies: Carotid Endarterectomy Abdominal Surgeries: Surgical HX of: Cholecystectomy, Colonoscopy, EGD Patient denies: Abdominal Surgery, Appendectomy, Gastric Bypass Surgery, Hernia Repair, Splenectomy Reproductive Surgeries: Patient denies;: Genitourinary Surgery Orthopedic Surgeries: Surgical HX of;: Orthopedic Surgery (FOR L LEG FX; right wrist) - Family History Family History: Reports;: Family Diabetes, Family Hypertension - Social History Smoking Status: Current every day smoker Frequency of Alcohol Use: None Type of Drug Use: None Exam Vital Signs: Vital Signs Temperature 98.0 F 08/10/16 14:10 Pulse Rate 104 H 08/10/16 14:10 Respiratory Rate 18 08/10/16 14:10 Blood Pressure 202/127 08/10/16 14:10 O2 Sat by Pulse Oximetry 98 08/10/16 14:10 - General General appearance: alert, in no apparent distress - Head Head exam: Present: atraumatic, normocephalic - Eye Eye exam: Present: normal appearance, PERRL, EOMI - ENT ENT exam: Present: mucous membranes moist, TM's normal bilaterally - Neck Neck exam: Present: full ROM, trachea midline. Absent: tenderness - Chest Chest inspection: Present: symmetric chest wall rise. Absent: tenderness - Respiratory Respiratory exam: Present: normal lung sounds bilaterally. Absent: respiratory distress - Cardiovascular Cardiovascular exam: Present: normal rhythm, tachycardia, normal heart sounds. Absent: murmur, rubs, gallop - Abdominal Exam Abdominal exam: Present: soft, tenderness (epigastric tenderness), normal bowel sounds. Absent: distention - Extremities Exam Extremities exam: Present: full ROM. Absent: tenderness - Back Exam Back exam: Present: full ROM. Absent: tenderness - Neurological Exam Neurological exam: Present: alert, oriented X3, CN II-XII intact. Absent: motor sensory deficit - Psychiatric Psychiatric exam: Present: normal affect, normal mood - Skin Skin exam: Present: warm, dry, intact, normal color. Absent: rash Course Course Narrative: Patient discussed with the hospitalist who will admit for further evaluation. Patient was given labetalol 20 mg IV which did improve his blood pressure. Patient continues to have nausea and vomiting despite IV fluids and Zofran IV. Results - Labs CBC & BMP: 08/10/16 15:07 08/10/16 15:07 Lab Results: I have reviewed the patients labs Labs: Laboratory Tests 08/10/16 15:07 WBC 17.2 H D RBC 5.18 Hgb 13.8 L Hct 40.4 L MCV 78.0 L Plt Count 596 H Neut % (Auto) 81.0 H Lymph % (Auto) 11.8 L Neut # (Auto) 13.9 [place] # (Auto) 1.1 H Laboratory Tests 08/10/16 15:07 Sodium 137 Potassium 4.4 Chloride 100 Carbon Dioxide 25 Anion Gap 16.4 H BUN 21 H Creatinine 2.00 H Glucose 194 H Disposition Clinical Impression: Diabetes mellitus, Nausea and vomiting, Gastroparesis, Hypertension Case discussed with: patient Disposition: Still a Patient Condition: Guarded Additional Instructions: Admit to the hospitalist.
[2016-08-10] MEDS ORDERED: ACETAMINOPHEN 325 MG TABLET PO PRN (17:10)
[2016-08-10] MEDS ORDERED: GLUCAGON 1 MG VIAL IM PRN (17:11)
[2016-08-10] MEDS ORDERED: DEXTROSE 50% 25 GM/50 ML VIAL IV PRN (17:11)
[2016-08-10] MEDS ORDERED: hydrALAZINE 20 MG/1 ML VIAL IV PRN (17:12)
--- NOTE | 2016-08-10 17:17 | Hospitalist History & Physical ---
Assessment and Plan (1) Gastroenteritis Status: Acute Current Visit: No (2) Diabetes Status: Chronic Current Visit: No (3) Leucocytosis Status: Resolved Current Visit: No (4) Acute kidney injury Status: Acute Current Visit: No (5) Hematemesis with nausea Status: Acute Current Visit: No (6) Gastroparesis Status: Acute Assessment and plan: Our plan for this patient will be admission to our service. Will provide hydration to him during the night. We will restart his home medications. If he is not able to take his home medications will have IV hydralazine to use as needed. Patient does have leukocytosis with this gastroenteritis type symptoms. We will start him on some Levaquin. Will reevaluate labs and patient in the morning. Hopefully he can be discharged at that time. Current Visit: Yes History of Present Illness Chief complaint: Intractable nausea and vomiting History of present illness: Mr. Leonardo is a 41 year old male with past medical history significant for gastroparesis, hypertension, diabetes and chronic kidney disease who was seen in our emergency room last night. Patient came in with nausea and vomiting and gastroenteritis type symptoms although he does have a history of gastroparesis. He was giving 1 L fluid in his discharge. Patient returned back today with similar complaints. He says he still feels like he somewhat dehydrated. Patient's blood pressure was elevated upon presentation. Patient required IV medications because he is not able to take p.o. medications at this time. I was consulted for admission. Home Medications Medication Instructions Recorded Confirmed Type Pantoprazole Tab [Protonix Tab] 40 mg PO DAILY 03/22/16 08/10/16 History Amlodipine Besylate [Amlodipine 10 mg PO DAILY 07/29/16 08/10/16 History Besylate] Carvedilol [Carvedilol] 6.25 mg PO DAILY 07/29/16 08/10/16 History Glyburide/Metformin HCl 1 tablet PO BID 07/29/16 08/10/16 History [Glyburide-Metformin 5-500 mg] Lisinopril 20 mg PO DAILY 07/29/16 08/10/16 History Spironolactone [Spironolactone] 25 mg PO DAILY 07/29/16 08/10/16 History Ondansetron [Ondansetron Odt] 8 mg PO Q4H PRN #20 tab.rapdis 08/10/16 08/10/16 Rx Allergies Allergy/AdvReac Type Severity Reaction Status Date / Time iodine Allergy Swelling Verified 07/28/16 23:48 of Lip/Tongue/Throat shrimp Allergy ITCHING Verified 07/28/16 23:48 Medical,Surgical,& Family Hx - Medical History Cardio: History of: Hypertension No history of: Aneurysm, Cardiac Dysrhythmia, Cerebrovascular Disease, Congenital Heart Disease, CHF, CAD, [place], Pacemaker, PVD, Valvular Heart Disease, Cardiovascular Problems Neurology: No history of: Brain Aneurysm, Cerebral Hemorrhage, Cerebrovascular Accident , Cerebral Palsy, Dementia, Migraine, Multiple Sclerosis, Parkinson's Disease, Peripheral Neuropathy, Seizures, TIA, Vertigo, Neurologocal Cancer HEENT: History of: Eye Problem (bleeding) Endocrine: History of: Diabetes Mellitus (NIDDM) (since 2000) No history of: Dyslipidemia Respiratory: History of: Asthma No history of: Bronchitis, COPD, Intubation, Obstructive Sleep Apnea, Pulmonary Embolism, Pulmonary Hypertension, Pneumonia, Lung Cancer Gastrointestinal: History of: GERD, Gastrointestinal Bleed, GI Problems ( gastroparesis) No history of: Bowel Obstruction, Clostridium Difficile, Crohn's Disease, Diverticulitis/ Diverticulosis, Esophageal Varices, Hemorrhoids, Hematochezia, Hepatitis, Liver Problems, Pancreatitis, Polyps, Ulcerative Colitis, Gastrointestinal Cancer - Surgical History Cardiac Surgeries: Patient Denies: Femoral-Popliteal Bypass Graft, Cardiac Catheterization, Cardiac Surgery, Carotid Endarterectomy, Internal Defibrillator, Vascular Access Devices Thoracic Surgeries: Patient denies;: Organ Transplant, Lobectomy Neurologic Surgeries: Patient denies: Brain Aneurysm, Cerebral Hemorrhage, Neurologic Surgery HEENT Surgeries: Surgical HX of: Tonsilectomy & Adenoidectomy Patient denies: Carotid Endarterectomy Abdominal Surgeries: Surgical HX of: Cholecystectomy, Colonoscopy, EGD Patient denies: Abdominal Surgery, Appendectomy, Gastric Bypass Surgery, Hernia Repair, Splenectomy Reproductive Surgeries: Patient denies;: Genitourinary Surgery Orthopedic Surgeries: Surgical HX of;: Orthopedic Surgery (FOR L LEG FX; right wrist) - Family History Family History: Reports;: Family Diabetes, Family Hypertension - Social History Smoking Status: Current every day smoker Frequency of Alcohol Use: None Type of Drug Use: None 12 point system: reviewed and no additional remarkable complaints except as stated Exam - Constitutional Vitals: Period Temp Pulse Resp BP Sys/Rossi Pulse Ox Last 24 Hr 98.0 F 104 18 202/127 98 General appearance: normal weight - Head Head exam: Present: normal inspection - Eye Eye exam: Present: EOMI Pupils: Present: CATHERINE - ENT ENT exam: Present: normal exam - Neck Neck exam: Present: normal inspection - Respiratory Respiratory exam: Present: clear to auscultation bilaterally - Cardiovascular Cardiovascular exam: Present: regular rate and rhythm - GI/Abdominal GI/Abdominal exam: Present: normal bowel sounds - Extremities Exam Extremities exam: Present: normal inspection - Back Exam Back exam: Present: normal inspection - Neurological Exam Neurological exam: Present: alert, oriented X3 - Psychiatric Psychiatric exam: Present: normal affect, normal mood Results - Labs CBC & BMP: 08/10/16 15:07 08/10/16 15:07
[2016-08-10] MEDS: LEVOFLOXACIN INJ 500 MG in PREMIX 1 EACH IV SCH (19:14)
[2016-08-10] MEDS: SODIUM CHLORIDE 0.9% 1,000 ML IV SCH (19:15)
[2016-08-10] MEDS: ONDANSETRON 4 MG/2 ML VIAL IV PRN (20:40)
[2016-08-10] MEDS: MORPHINE 2 MG/1 ML SYRINGE IV PRN (21:02)
[2016-08-10] MEDS: INSULIN REGULAR 100 UNIT/ML SUBCUT SCH (21:03)
[2016-08-10] MEDS: METOCLOPRAMIDE 10 MG/2 ML VIAL IV SCH (23:55)
[2016-08-11] MEDS: SODIUM CHLORIDE 0.9% 1,000 ML IV SCH ×2 (05:03→10:58)
[2016-08-11] MEDS: METOCLOPRAMIDE 10 MG/2 ML VIAL IV SCH ×3 (05:04→17:01)
[2016-08-11 06:59] LABS: Basophils # 0.1 10*3/uL (0.0-0.2); Basophils % 0.6 % (0.0-0.8); Eosinophils # 0.1 10*3/uL (0.0-0.87); Eosinophils % 0.7 % (0.00-10.9); Hematocrit 34.9 VOL% (42.0-52.0); Immature Granulocytes % 0.4 %; Immature Granulocytes Absolute 0.05 #; Lymphocytes # 1.5 10*3/uL (1.4-4.0); Mean Corpuscular HGB Conc 33.8 GM/DL (32-36); Mean Corpuscular Hemoglobin 27 PG (27-34); Mean Corpuscular Volume 78.3 FL (87-102); Mean Platelet Volume 9.9 FL (9.6-12.0); Monocytes # 0.9 10*3/uL (0.11-0.8); Monocytes % 6.1 % (1.7-12.7); Neutrophils # 11.4 10*3/uL (1.4-7.4); Neutrophils % 81.2 % (38.7-73.9); Platelet Count 509 T/CUMM (130-400); Red Blood Count 4.46 MC/CUMM (3.8-5.5); Red Cell Distribution Width 14.6 % (9.3-17.3)
[2016-08-11 07:08] LABS: Hemoglobin 11.8 GM/DL (14.0-18.0)
[2016-08-11 07:33] LABS: Calcium 8.6 MG/DL (8.5-10.1); Osmolality,Calculated 285.4 MOS/KG (273-304); Potassium 4.1 MMOL/L (3.5-5.1)
[2016-08-11] MEDS: INSULIN REGULAR 100 UNIT/ML SUBCUT SCH ×4 (08:39→21:21)
[2016-08-11] MEDS: PANTOPRAZOLE 40 MG VIAL IV SCH (08:40)
[2016-08-11] MEDS: MORPHINE 2 MG/1 ML SYRINGE IV PRN (08:41)
[2016-08-11] MEDS: ONDANSETRON 4 MG/2 ML VIAL IV PRN (08:41)
[2016-08-11] MEDS ORDERED: LISINOPRIL 20 MG TABLET PO SCH (09:00)
[2016-08-11] MEDS ORDERED: CARVEDILOL 6.25 MG TABLET PO SCH (09:00)
[2016-08-11] MEDS ORDERED: SPIRONOLACTONE 25 MG TABLET PO SCH (09:00)
[2016-08-11] MEDS: amLODIPine 10 MG TABLET PO SCH (09:27)
[2016-08-11] MEDS ORDERED: CARVEDILOL 12.5 MG TABLET PO SCH (09:54)
[2016-08-11] MEDS ORDERED: SODIUM CHLORIDE 0.45% 1,000 ML IV SCH (10:00)
[2016-08-11] MEDS: LOSARTAN 50 MG TABLET PO SCH (10:58)
--- NOTE | 2016-08-11 12:56 | Hospitalist Progress Note ---
Assessment and Plan (1) Nausea and vomiting Status: Acute Assessment and plan: Continue Zofran and Reglan IV, advance diet as tolerated Current Visit: No (2) Diabetic gastroparesis Status: Chronic Assessment and plan: Continue Reglan IV, needs to be compliant with diet Current Visit: No (3) Acute on chronic renal failure Status: Acute Assessment and plan: Continue hydration but switch to half-normal saline due to high blood pressure. Renal failure improving but not a good candidate for metformin Current Visit: Yes (4) Diabetes mellitus Status: Chronic Assessment and plan: Due to his renal failure, he is not a good candidate for metformin. Hold glyburide for now. Low dose of Lantus to prevent any DKA. Current Visit: No (5) Essential hypertension Status: Chronic Assessment and plan: Uncontrolled increase Coreg to 12.5 p.o. twice daily Current Visit: No Hospitalist: Subjective Interval history: Patient has severe known gastroparesis due to noncompliance with diabetic medication and diet. He has been admitted multiple times for gastroparesis flares. Patient is moving back to [place] at the end of the month. His is a physician. Patient extremely nauseated today. Not tolerating his clear liquids well. White count is better today. Patient had a slight hint of ketones on his breath. Exam - Constitutional Vitals: Period Temp Pulse Resp BP Sys/Rossi Pulse Ox Last 24 Hr 97.2 F-98.8 F 82-104 14-20 144-205/79-127 98-100 Exam: Heart Rate-[RRR] Lungs-[CTAB] GI-[+bs soft, NT] Ext-[no edema] Neuro [Motor 5/5], [alert and oriented times 3] psych [normal mood and affect] General [mild acute distress] Results - Labs CBC & BMP: 08/11/16 06:24 08/11/16 06:24 Lab Results: I have reviewed the past 24 hour labs
[2016-08-11] MEDS ORDERED: INSULIN GLARGINE 100 UNIT/ML SUBCUT SCH (13:00)
[2016-08-11] MEDS: DEXTROSE 5% NACL 0.45% 1,000 ML IV SCH (14:14)
[2016-08-11] MEDS ORDERED: PROMETHAZINE 25 MG/1 ML VIAL IM PRN (14:35)
--- NOTE | 2016-08-11 14:58 | XRay Report ---
XR chest 1V portable Indication: SOB Comparison: Chest x-ray dated July 29, 2016 Technique: Single frontal view of the chest. Findings: The cardiomediastinal silhouette is stable in configuration. No focal consolidation, pleural effusion, or pneumothorax. Visualized osseous and surrounding soft tissue structures appear grossly unchanged. IMPRESSION: Stable chest x-ray without acute cardiopulmonary process demonstrated. PROCEDURE INTERPRETED AT [facility] DEPARTMENT OF RADIOLOGY Final Report Signed by: Dr Rohit Trevino
[2016-08-11] MEDS: LEVOFLOXACIN INJ 500 MG in PREMIX 1 EACH IV SCH (17:01)
[2016-08-11 21:10] LABS: Apearance,Urine CLEAR (Clear); Bilirubin,Urine Negative (Negative); Blood, Urine Small mg/dL (Negative); Glucose,Urine (UA) 50 mg/dL (Negative); Ketones,Urine Negative (Negative); Nitrite,Urine Negative (Negative); Protein,Urine >=500 MG/DL; RBC,Urine 12 /HPF (0-4); Urine Color Straw (Yellow); Urine Specific Gravity 1.007 (1.001-1.035); Urine Urobilinogen < 2.0 EU/DL (0.2-1.0); WBC,Urine 3 /HPF (0-6)
[2016-08-11] MEDS: CARVEDILOL 12.5 MG TABLET PO SCH (21:21)
[2016-08-12] MEDS: METOCLOPRAMIDE 10 MG/2 ML VIAL IV SCH ×2 (00:26→05:00)
[2016-08-12] MEDS: DEXTROSE 5% NACL 0.45% 1,000 ML IV SCH (04:50)
[2016-08-12] MEDS: MORPHINE 2 MG/1 ML SYRINGE IV PRN (04:55)
[2016-08-12 07:11] LABS: Basophils # 0.1 10*3/uL (0.0-0.2); Basophils % 0.6 % (0.0-0.8); Eosinophils # 0.3 10*3/uL (0.0-0.87); Hematocrit 34.5 VOL% (42.0-52.0); Hemoglobin 11.6 GM/DL (14.0-18.0); Immature Granulocytes % 0.3 %; Immature Granulocytes Absolute 0.03 #; Lymphocytes # 2.1 10*3/uL (1.4-4.0); Lymphocytes % 21.7 % (21.2-54.2); Mean Corpuscular HGB Conc 33.6 GM/DL (32-36); Mean Corpuscular Hemoglobin 27 PG (27-34); Mean Corpuscular Volume 78.8 FL (87-102); Mean Platelet Volume 10.1 FL (9.6-12.0); Monocytes # 0.7 10*3/uL (0.11-0.8); Monocytes % 7.5 % (1.7-12.7); Neutrophils # 6.5 10*3/uL (1.4-7.4); Neutrophils % 66.9 % (38.7-73.9); Platelet Count 445 T/CUMM (130-400); Red Blood Count 4.38 MC/CUMM (3.8-5.5); Red Cell Distribution Width 14.4 % (9.3-17.3); White Blood Count 9.8 T/CUMM (4-12)
[2016-08-12 08:02] LABS: Calcium 8.5 MG/DL (8.5-10.1); Magnesium 1.5 MG/DL (1.8-2.4); Osmolality,Calculated 279.5 MOS/KG (273-304)
--- NOTE | 2016-08-12 08:13 | Discharge Summary ---
Hospital Course - Hospital Course Hospital Course: 41-year-old -[place] male with history of non-insulin dependent diabetes who has reoccurring admissions for flares of his gastroparesis. Patient is noncompliant with his medications and diet. He lives in [place] but works in [place]. Patient is returning to [place] today and has to catch a plane flight. He is still having nausea and vomiting but he wants to be released. He still has renal failure despite hydration and would recommend him not getting back on glyburide and metformin as they want appropriately clear. Patient has hypertension that is not well controlled and we have gone up on his Coreg and his lisinopril. Patient needs to see his primary care doctor when arriving to [place]. Patient is still only tolerating a clear liquid diet but at his request we are discharging him. - Time spent with patient Time with patient DS: Less than 30 minutes (25 min) Diagnosis - Discharge Diagnosis (1) Nausea and vomiting Status: Acute (2) Diabetic gastroparesis Status: Chronic (3) Acute on chronic renal failure Status: Acute (4) Diabetes mellitus Status: Chronic (5) Essential hypertension Status: Chronic Discharge Plan - Discharge Data Disposition: Disch To Home/Self Care Condition at Discharge: Stable Discharge Diet: diabetic diet Activity: resume usual activities as tolerated Hygiene: no restrictions Weight Bearing at Discharge: full weight bearing - Discharge Medications New Insulin Glargine [Lantus] 7 unit SUBCUT DAILY #100 ml Continue Ondansetron [Ondansetron Odt] 8 mg PO Q4H PRN #20 tab.rapdis PRN Reason: Nausea Pantoprazole Tab [Protonix Tab] 40 mg PO DAILY Amlodipine Besylate 10 mg PO DAILY Changed Lisinopril 40 mg PO DAILY #60 Carvedilol 12.5 mg PO DAILY #30 tablet Discontinued Spironolactone [Spironolactone] 25 mg PO DAILY Glyburide/Metformin HCl [Glyburide-Metformin 5-500 mg] 1 tablet PO BID - Follow Up or Referral Follow Up: pmd, [Other] - 1 Week - Forms/Instructions Exam - Constitutional Vitals: Period Temp Pulse Resp BP Sys/Rossi Pulse Ox Last 24 Hr 97.7 F-98.9 F 72-86 18-20 143-161/75-96 99-100 General appearance: normal weight, no acute distress - Cardiovascular Cardiovascular exam: Present: regular rate and rhythm, systolic murmur - GI/Abdominal GI/Abdominal exam: Present: normal bowel sounds, soft. Absent: tenderness - Psychiatric Psychiatric exam: Present: normal affect, normal mood Discharge Results Procedures and tests throughout hospitalization: Pending Orders 08/11/16 13:11 Blood Culture Stat 08/13/16 04:00 BMP w/ Mg [Basic Metabolic Panel w/Mg] IN AM Comp Blood Count Auto Diff IN AM 08/14/16 04:00 BMP w/ Mg [Basic Metabolic Panel w/Mg] IN AM Comp Blood Count Auto Diff IN AM Labs on day of discharge: Labs from last 24 hours 08/12/16 08/12/16 08/11/16 06:11 06:11 20:10 WBC 9.8 RBC 4.38 Hgb 11.6 L Hct 34.5 L MCV 78.8 L MCH 27 MCHC 33.6 RDW 14.4 Plt Count 445 H MPV 10.1 Neut % (Auto) 66.9 Lymph % (Auto) 21.7 [place] % (Auto) 7.5 Eos % (Auto) 3.0 Baso % (Auto) 0.6 Neut # (Auto) 6.5 Lymph # (Auto) 2.1 [place] # (Auto) 0.7 Eos # (Auto) 0.3 Baso # (Auto) 0.1 Immature Gran % 0.3 Nucleated RBC % 0.0 Immature Gran # 0.03 Nucleated RBCs # 0.00 Sodium 139 Potassium 4.0 Chloride 104 Carbon Dioxide 26 Anion Gap 13.0 BUN 12 Creatinine 1.70 H GFR Calculation 66 BUN/Creatinine Ratio 7.00 Glucose 154 H POC Glucose Calculated Osmolality 279.5 Calcium 8.5 Magnesium 1.5 L Urine Color Straw Urine Appearance Clear Urine pH 6.0 Ur Specific [place] 1.007 Urine Protein >=500 Urine Glucose (UA) 50 Urine Ketones Negative Urine Blood Small Urine Nitrate Negative Urine Bilirubin Negative Urine Urobilinogen < 2.0 H Urine Leukocytes Negative Urine RBC 12 Urine WBC 3 Ur Culture Indicated? Not indicated 08/11/16 08/11/16 08/11/16 19:09 16:15 14:31 WBC RBC Hgb Hct MCV MCH MCHC RDW Plt Count MPV Neut % (Auto) Lymph % (Auto) [place] % (Auto) Eos % (Auto) Baso % (Auto) Neut # (Auto) Lymph # (Auto) [place] # (Auto) Eos # (Auto) Baso # (Auto) Immature Gran % Nucleated RBC % Immature Gran # Nucleated RBCs # Sodium Potassium Chloride Carbon Dioxide Anion Gap BUN Creatinine GFR Calculation BUN/Creatinine Ratio Glucose POC Glucose 132 H 112 H 126 H Calculated Osmolality Calcium Magnesium Urine Color Urine Appearance Urine pH Ur Specific [place] Urine Protein Urine Glucose (UA) Urine Ketones Urine Blood Urine Nitrate Urine Bilirubin Urine Urobilinogen Urine Leukocytes Urine RBC Urine WBC Ur Culture Indicated? 08/11/16 08/11/16 14:05 10:56 WBC RBC Hgb Hct MCV MCH MCHC RDW Plt Count MPV Neut % (Auto) Lymph % (Auto) [place] % (Auto) Eos % (Auto) Baso % (Auto) Neut # (Auto) Lymph # (Auto) [place] # (Auto) Eos # (Auto) Baso # (Auto) Immature Gran % Nucleated RBC % Immature Gran # Nucleated RBCs # Sodium Potassium Chloride Carbon Dioxide Anion Gap BUN Creatinine GFR Calculation BUN/Creatinine Ratio Glucose POC Glucose 34 L* 168 H Calculated Osmolality Calcium Magnesium Urine Color Urine Appearance Urine pH Ur Specific [place] Urine Protein Urine Glucose (UA) Urine Ketones Urine Blood Urine Nitrate Urine Bilirubin Urine Urobilinogen Urine Leukocytes Urine RBC Urine WBC Ur Culture Indicated? DS: Provider Date of admission: 08/10/16 16:13 Primary care physician: . No PCP Attending physician on admission: Alex Andujar MD Discharging clinician: Rosemary López MD
[2016-08-12] MEDS: INSULIN REGULAR 100 UNIT/ML SUBCUT SCH (08:41)
[2016-08-12] MEDS: LOSARTAN 50 MG TABLET PO SCH (08:45)
[2016-08-12] MEDS: CARVEDILOL 12.5 MG TABLET PO SCH (08:45)
[2016-08-12] MEDS: amLODIPine 10 MG TABLET PO SCH (08:45)
[2016-08-12] MEDS: PANTOPRAZOLE 40 MG VIAL IV SCH (08:45)
[2016-08-12 11:37] VITALS: BP 156/91
== END 2016-08-12 08:50 | disposition home or self-care (01) ==
LOC: N.ED 13:58 → N.EDINP 16:13 → SUATTDRO 16:13 → INTOOBSV 16:13 → N.5E 17:11
PROVIDERS: ADMIT Internal Medicine; ATTEND Internal Medicine